=== PATIENT | female | born 1980 | race Caucasian/White ===

== ENCOUNTER 2016-12-06 17:53 | Inpatient (IN) | payer MEDICAID ==
[~2016-12-06] VITALS: Ht 149.9 cm; Wt 72.5 kg
[~2016-12-06 17:53] MED LIST: PREN1TAB17 PO
[2016-12-06] MEDS ORDERED: ONDANSETRON 4 MG INJ IV STA ×2 (18:54→22:34)
[2016-12-06] MEDS ORDERED: morphine 4 MG/ML VIAL IV STA (18:54)
[2016-12-06 19:23] LABS: ADD SCAN DIFF NO
[2016-12-06 19:27] LABS: BASOPHILS % 0.3 % (0.0-2.0); EOSINOPHILS # 0.1 10^3/ul (0.0-0.5); EOSINOPHILS % 0.6 % (0.0-7.0); HEMATOCRIT 38.9 % (37.0-47.0); HEMOGLOBIN 12.6 g/dl (12.0-16.0); LYMPHOCYTES # 2.1 10^3/ul (0.8-2.9); LYMPHOCYTES % 19.7 % (15.0-51.0); MEAN CORPUSCULAR HEMOGLOBIN 29.8 pg (29.0-33.0); MEAN CORPUSCULAR HGB CONC 32.4 g/dl (32.0-37.0); MONOCYTE # 0.5 10^3/ul (0.3-0.9); MONOCYTES % 4.7 % (0.0-11.0); NEUTROPHIL # 8.1 10^3/ul (1.6-7.5); NEUTROPHILS % 74.5 % (39.0-77.0); PLATELET COUNT 293 10^3/UL (140-415); RED BLOOD COUNT 4.23 10^6/ul (4.20-5.40); RED CELL DISTRIBUTION WIDTH 13.2 % (11.5-14.5); WHITE BLOOD COUNT 10.8 10^3/ul (4.8-10.8)
[2016-12-06 19:30] LABS: ADD UMIC YES; UR ASCORBIC ACID NEGATIVE (NEGATIVE); UR BILIRUBIN (Dip) NEGATIVE (NEGATIVE); UR BLOOD (Dip) NEGATIVE (NEGATIVE); UR CLARITY CLEAR (CLEAR); UR COLOR YELLOW (YELLOW); UR GLUCOSE (Dip) NEGATIVE (NEGATIVE); UR KETONES (Dip) NEGATIVE (NEGATIVE); UR LEUKOCYTE ESTERASE (Dip) TRACE Leu/ul (NEGATIVE); UR NITRITE (Dip) NEGATIVE (NEGATIVE); UR RBC 0 /HPF (0-5); UR SQUAMOUS EPITHELIAL CELL FEW /HPF (FEW); UR TOTAL PROTEIN (Dip) NEGATIVE (NEGATIVE); UR UROBILINOGEN (Dip) NEGATIVE (NEGATIVE)
[2016-12-06 19:39] LABS: ALBUMIN 4.8 g/dl (3.3-4.9); ALBUMIN/GLOBULIN RATIO 1.33; BILIRUBIN,INDIRECT 0.4 mg/dl (0-1.1); BILIRUBIN,TOTAL 0.4 mg/dl (0.2-1.3); CALCIUM 9.6 mg/dl (8.4-10.2); CREATININE 0.67 mg/dl (0.44-1.00); POTASSIUM 3.9 mmol/L (3.5-5.1); TOTAL PROTEIN 8.4 g/dl (6.1-8.1)
--- NOTE | 2016-12-06 20:01 | RADRPT ---
PROCEDURE: CT KUB. CLINICAL INDICATION: Right upper quadrant abdominal pain TECHNIQUE: CT KUB (Renal Stone Survey) without contrast was performed on a GE volumetric [address] scanner. No IV contrast was administered. 3-D coronal reformatted images were obtained from the axial source images. CTDI: 15.5 mGy DLP: The 755 mGy-cm COMPARISON: No prior studies are available for comparison. FINDINGS: Visualized lung bases are clear. The unenhanced liver, spleen, bilateral adrenal glands, pancreas, and gallbladder are normal-appeari ng. Bilateral kidneys are normal-appearing without hydronephrosis nor renal calculus. Urinary bladder is grossly unremarkable. A few pedunculated calcified uterine fibroids are present. A retrocecal appendix demonstrates wall thickening and mild jose d appendiceal fluid and fat stranding consistent with acute appendicitis. No abscess or free air. No abdominal pelvic adenopathy. Small fat containing umbilical hernia. Abdominal aorta is normal in caliber. The small and large bowel are thin-walled and nondilated without evidence for obstruction. Some hig h density material within the colon likely represents residual contrast material. IMPRESSION: Acute uncomplicated retrocecal appendicitis. No abscess or free air. Small pedunculated calcified uterine fibroids. Acute findings above discussed with Lynda Mei NP, in the ED at approximately 08:00 p.m. on December 06, 2016. Physician See Date Time Electronically viewed and signed by Physician See on 12/06/2016 20:01 ML/
--- NOTE | 2016-12-06 20:09 | ERD ---
ER Documentation Chief Complaint Date/Time DATE: 12/06/16 TIME: 20:06 Chief Complaint 8/10 abd pain constipation x 3 days HPI This is a 35-year-old female that presents to the ER with right lower quadrant abdominal pain that started 4 days ago. Patient states that pain was all over her stomach however localized to the right lower quadrant yesterday. Patient had been taking mineral water and stated that the pain would go away however marijuana has not worked today. Pain is severe and constant it is worse whenever she moves. She denies any fevers or chills. She denies any nausea vomiting or diarrhea. Patient states that today her appetite has been completely gone. She denies any urinary frequency or dysuria. Patient denies any drinking or smoking. She has a past medical history of hypertension, however is not on any hypertensive medications. ROS 12 point review of systems was done, all negative except per HPI. Medications Home Meds Reported Medications Vit-Iron Fumarate-FA ( Tablet) 1 Each Tablet, 1 TAB PO DAILY, TAB 10/04/14 Allergies Allergies: Coded Allergies: No Known Allergy (Unverified , 12/06/16) PMhx/Soc History of Surgery: No Anesthesia Reaction: No Hx Neurological Disorder: No Hx Respiratory Disorders: No Hx Cardiac Disorders: No Hx Psychiatric Problems: No Hx Miscellaneous Medical Probl: Yes (GERD) Hx Alcohol Use: No Hx Substance Use: No Hx Tobacco Use: No Smoking Status: Never smoker Physical Exam Vitals Vital Signs Date Time Temp Pulse Resp B/P Pulse Ox O2 Delivery O2 Flow Rate FiO2 12/06/16 18:00 97.9 90 18 121/76 97 Physical Exam GENERAL: The patient is well developed and appropriate for usual state of health , in no apparent distress. HEENT: Atraumatic. CHEST: Clear to auscultation bilaterally. There are no rales, wheezes or rhonchi. HEART: Regular rate and rhythm. No murmurs, clicks, rubs or gallops. ABDOMEN: Soft and nondistended, tender to palpation in the right lower quadrant. Good bowel sounds. No rebound or guarding. No gross peritonitis. No gross organomegaly or masses. Positive McBurney point BACK: No midline or flank tenderness. NEURO: Alert and oriented. Result Diagram: 12/06/16191412/06/161914 Results 24 hrs Laboratory Tests Test 12/06/16 19:15 White Blood Count 10.810^3/ul Red Blood Count 4.2310^6/ul Hemoglobin 12.6g/dl Hematocrit 38.9% Mean Corpuscular Volume 92.0fl Mean Corpuscular Hemoglobin 29.8pg Mean Corpuscular Hemoglobin Concent 32.4g/dl Red Cell Distribution Width 13.2% Platelet Count 08946^3/UL Mean Platelet Volume 11.0fl Neutrophils % 74.5% Lymphocytes % 19.7% Monocytes % 4.7% Eosinophils % 0.6% Basophils % 0.3% Nucleated Red Blood Cells % 0.0/100WBC Neutrophils # 8.110^3/ul Lymphocytes # 2.110^3/ul Monocytes # 0.510^3/ul Eosinophils # 0.110^3/ul Basophils # 0.010^3/ul Nucleated Red Blood Cells # 0.010^3/ul Urine Color YELLOW Urine Clarity CLEAR Urine pH 8.0 Urine Specific [place] 1.010 Urine Ketones NEGATIVEmg/dL Urine Nitrite NEGATIVEmg/dL Urine Bilirubin NEGATIVEmg/dL Urine Urobilinogen NEGATIVEmg/dL Urine Leukocyte Esterase TRACELeu/ul Urine Microscopic RBC 0/HPF Urine Microscopic WBC 1/HPF Urine Squamous Epithelial Cells FEW/HPF Urine Hemoglobin NEGATIVEmg/dL Urine Glucose NEGATIVEmg/dL Urine Total Protein NEGATIVEmg/dl Sodium Level 143mmol/L Potassium Level 3.9mmol/L Chloride Level 99mmol/L Carbon Dioxide Level 28mmol/L Anion Gap 20 Blood Urea Nitrogen 11mg/dl Creatinine 0.67mg/dl Glucose Level 93mg/dl Calcium Level 9.6mg/dl Total Bilirubin 0.4mg/dl Direct Bilirubin 0.00mg/dl Indirect Bilirubin 0.4mg/dl Aspartate Amino Transf (AST/SGOT) 22IU/L Alanine Aminotransferase (ALT/SGPT) 28IU/L Alkaline Phosphatase 69IU/L Total Protein 8.4g/dl Albumin 4.8g/dl Globulin 3.60g/dl Albumin/Globulin Ratio 1.33 Lipase 139U/L Current Medications Medications (Trade) Dose Ordered Sig/Allie Route PRN Reason Start Time Stop Time Status Last Admin Dose Admin Morphine Sulfate (morphine) 6 mg ONCE STAT IV 12/06/16 18:54 12/06/16 18:55 DC 12/06/16 19:19 Ondansetron HCl (Zofran Inj) 4 mg ONCE STAT IV 12/06/16 18:54 12/06/16 18:55 DC 12/06/16 19:19 [place] [id number] Radiology Main Line: [phone] DIAGNOSTIC IMAGING REPORT Patient: BRIAN BUCIO : 1980 Age: 35 Sex: F MR #: [id number] DOS: 12/06/16 1854 Ordering MD: AB FALCON PA-C Location: [facility] Room/Bed: PROCEDURE: CT KUB. CLINICAL INDICATION: Right upper quadrant abdominal pain TECHNIQUE: CT KUB (Renal Stone Survey) without contrast was performed on a [place] volumetric [address] scanner. No IV contrast was administered. 3-D coronal reformatted images were obtained from the axial source images. CTDI: 15.5 mGy DLP: The 755 mGy-cm COMPARISON: No prior studies are available for comparison. FINDINGS: Visualized lung bases are clear. The unenhanced liver, spleen, bilateral adrenal glands, pancreas, and gallbladder are normal-appearing. Bilateral kidneys are normal-appearing without hydronephrosis nor renal calculus. Urinary bladder is grossly unremarkable. A few pedunculated calcified uterine fibroids are present. A retrocecal appendix demonstrates wall thickening and mild jose d appendiceal fluid and fat stranding consistent with acute appendicitis. No abscess or free air. No abdominal pelvic adenopathy. Small fat containing umbilical hernia. Abdominal aorta is normal in caliber. The small and large bowel are thin-walled and nondilated without evidence for obstruction. Some high density material within the colon likely represents residual contrast material. IMPRESSION: Acute uncomplicated retrocecal appendicitis. No abscess or free air. Small pedunculated calcified uterine fibroids. Acute findings above discussed with Lynda Mei NP, in the ED at approximately 08:00 p.m. on December 06, 2016. Physician See Date Time Electronically viewed and signed by Sadiq Brown Physician on 12/06/2016 20 :01 ML/ CC: AB FALCON Procedures/MDM This is a 35-year-old female presents to the ER with right lower quadrant pain, she does have appendicitis she will be transferred to ER 1 for admission and further management and care. Departure Diagnosis: Primary Impression: Appendicitis Condition: Fair AB FALCON Dec 06, 2016 20:09
[2016-12-06] MEDS ORDERED: SOD CHLORIDE 0.9% 1,000 ML IV ONE (20:30)
[2016-12-06] MEDS ORDERED: PIPER-TAZO 3.375 GM IV (PMX) 100 ML IVPB ONE (20:30)
[2016-12-06] MEDS ORDERED: OMEP20CA16 PO (20:53)
--- NOTE | 2016-12-06 20:54 | EN ---
Date/Time of Note Date/Time of Note DATE: 12/06/16 TIME: 20:51 ER Progress Note I have seen and evaluated the patient along with the PA and/or [employer] provider. I agree with the evaluation and plan of care. Please see their documentation for full ER course and evaluation. Initial presentation: This young woman presents with right lower quadrant abdominal pain today and anorexia. She developed generalized abdominal pain yesterday. On exam: Vital signs stable, patient afebrile General: Well-developed well-nourished woman in no apparent distress looks nontoxic Abdominal examination: Right lower quadrant tenderness to touch with voluntary guarding, no rigidity or rebound Cardiac: Regular rate rhythm no murmurs rubs gallops Lungs: Clear no wheezing crackles or stridor Assessment and plan: CT scan of the abdomen and pelvis without contrast revealed acute retrocecal appendicitis without perforation. Patient was treated here with IV fluids, morphine, Zofran, and Zosyn 3.375 g IV 1. Accepting care team and consultations: I discussed the current laboratory data, diagnostic imaging and emergency care provided. Admitting team: Hospitalist Admitting team indication: Insurance directed Consulting services: On-call surgeon, Dr. Anne who I spoke to Diagnostic impression: Acute appendicitis CARRI QUINTANILLA MD Dec 06, 2016 20:54
--- NOTE | 2016-12-06 20:56 | HP ---
Date/Time of Note Date/Time of Note DATE: 12/06/16 TIME: 20:56 Assessment/Plan VTE Prophylaxis VTE Prophylaxis Intervention: SCD's Assessment/Plan Chief Complaint/Hosp Course This is a 35 year female being admitted to the [facility] floor for: #1 acute appendicitis: Retrocecal appendicitis confirmed on CAT scan. At the current time will provide IV fluid hydration with normal saline, Zosyn IV every 6 hours, IV narcotic for pain control, will keep the patient n.p.o. Consult to general surgery placed by the ER physician. #2 uterine fibroids: Incidental finding of fibroids on CAT scan. This finding will need to be discussed with the patient after surgery for #1. Will need to follow-up with OB as an outpatient. #3 DVT and GI prophylaxis: SCDs, Protonix Further treatment strategy will be implemented as per the clinical course. Problems: HPI/ROS Admit Date/Time Admit Date/Time Hx of Present Illness Chief complaint: Abdominal pain This is a 35-year-old female that presents to the ER with right lower quadrant abdominal pain that started 4 days ago. Patient states that pain was all over her stomach however localized to the right lower quadrant yesterday. Patient had been taking mineral water and stated that the pain would go away however marijuana has not worked today. Pain is severe and constant it is worse whenever she moves. She denies any fevers or chills. She denies any nausea vomiting or diarrhea. Patient states that today her appetite has been completely gone. She denies any urinary frequency or dysuria. Patient denies any drinking or smoking. She has a past medical history of hypertension, however is not on any hypertensive medications. Allergies: NKDA Medications: None ROS Const: As per HPI Eyes : No pain discharge or redness or change in visual acuity ENT: No pain, sore throat, congestion, congestion, dysphagia or discharge Respiratory: No shortness of breath, cough, sputum, wheezing, or pleuritic pain Cardiovascular: No chest pain, palpitation, PND, or edema GI : As per HPI Genitourinary: No dysuria, hematuria, flank pain , discharge or CVA tenderness Musculoskeletal: No joint pain, back pain, neck pain, restricted range of motion in neck or joints Skin: No rash, bruising or hives Neuro: No headache, dizziness, syncope, seizure, focal weakness Endocrine: No polyuria, polydipsia, temperature intolerance Psych: No hallucination, depression, anxiety or suicidal ideation PMH/Family/Social Past Medical History Medical History: no pertinent history Past Surgical History Past Surgical Hx: no surgical history Family History Significant Family History: no pertinent family hx Social History Alcohol Use: none Smoking Status: Never smoker Drug Use: none Exam/Review of Systems Vital Signs Vitals Vital Signs Date Time Temp Pulse Resp B/P Pulse Ox O2 Delivery O2 Flow Rate FiO2 12/06/16 18:00 97.9 90 18 121/76 97 Exam Exam General: This is a obese female lying in bed in mild distress from pain. HEENT: Atraumatic, normocephalic. The pupils are equal, round and reactive. Extraocular motor are intact Neck: Supple with full range of motion. No rigidity or meningismus Chest: Nontender Lungs: Clear to auscultation bilaterally no crackles rales or wheezing Heart: Normal S1-S2, Regular rhythm and rate. No murmur, S3, or S4 Abdomen: Right lower quadrant tenderness to palpation, normal bowel sounds. Extremities: Normal to inspection, no edema no cyanosis Neurologic: Normal mental status, speech normal, cranial nerves II through XII are intact, motor and sensory are intact, no focal weakness Labs Result Diagram: 12/06/16191412/06/161914 Medications Medications Current Medications Sodium Chloride 1,000 ml @ 1,000 mls/hr Q1H ONCE IV Last administered on 20:24; Admin Dose 1,000 MLS/HR; Start 12/06/16 at 20:30; Stop 12/06/16 at 21:29 Piperacillin Sod/ Tazobactam Sod (Zosyn 3.375gm/ 100 ml (Pmx)) 100 ml @ 200 mls /hr ONCE ONCE IVPB Last administered on 12/06/16 20:24; Admin Dose 200 MLS/HR ; Start 12/06/16 at 20:30; Stop 12/06/16 at 20:59 OXANA SAHNI Dec 06, 2016 20:56
[2016-12-06 21:02] LABS: PROTIME 13.2 Sec (12.2-14.2)
[2016-12-06 21:03] LABS: PARTIAL THROMBOPLASTIN TIME 26.9 Sec (25.0-35.0)
[2016-12-06] MEDS ORDERED: NACL 0.9% 3 ML SYG IV SCH (22:00)
[2016-12-06] MEDS ORDERED: ACETAMINOPHEN 325 MG TAB PO PRN (22:00)
[2016-12-06] MEDS ORDERED: METOCLOPRAMIDE 10 MG INJ IV PRN (22:00)
[2016-12-06] MEDS ORDERED: morphine 10 MG INJ IV ONE (23:00)
[2016-12-06 23:26] VITALS: TEMP 98.5
[2016-12-07] VITALS (21 sets, daily range): BP systolic 104–134; BP diastolic 54–74; PULSE 63–88; RESP 16–21; Ht 149.9 cm; Wt 72.5 kg
[2016-12-07] MEDS: SOD CHLORIDE 0.9% 1,000 ML IV SCH ×3 (00:53→17:46)
[2016-12-07] MEDS: ONDANSETRON 4 MG INJ IV PRN ×2 (00:53→08:04)
[2016-12-07] MEDS: PIPER-TAZO 3.375 GM IV (PMX) 100 ML IVPB SCH ×4 (00:54→17:51)
[2016-12-07] MEDS: morphine 4 MG/ML VIAL IV PRN ×2 (00:55→05:46)
[2016-12-07] MEDS ORDERED: HYDROmorphONE 1 MG/ML SYG IV PRN (01:00)
[2016-12-07 05:50] LABS: ADD SCAN DIFF NO
[2016-12-07 05:54] LABS: BASOPHILS % 0.2 % (0.0-2.0); EOSINOPHILS % 0.1 % (0.0-7.0); HEMATOCRIT 33.8 % (37.0-47.0); HEMOGLOBIN 10.6 g/dl (12.0-16.0); LYMPHOCYTES # 1.4 10^3/ul (0.8-2.9); LYMPHOCYTES % 16.2 % (15.0-51.0); MEAN CORPUSCULAR HEMOGLOBIN 29.3 pg (29.0-33.0); MEAN CORPUSCULAR HGB CONC 31.4 g/dl (32.0-37.0); MEAN CORPUSCULAR VOLUME 93.4 fl (82.0-101.0); MEAN PLATELET VOLUME 11.5 fl (7.4-10.4); MONOCYTE # 0.3 10^3/ul (0.3-0.9); MONOCYTES % 3.8 % (0.0-11.0); NEUTROPHIL # 6.6 10^3/ul (1.6-7.5); NEUTROPHILS % 79.3 % (39.0-77.0); PLATELET COUNT 247 10^3/UL (140-415); RED BLOOD COUNT 3.62 10^6/ul (4.20-5.40); RED CELL DISTRIBUTION WIDTH 13.4 % (11.5-14.5); WHITE BLOOD COUNT 8.4 10^3/ul (4.8-10.8)
[2016-12-07] MEDS ORDERED: PANTOPRAZOLE 40 MG INJ IV SCH (06:00)
[2016-12-07] MEDS ORDERED: GLYCOPYRROLATE 0.4 MG INJ ONE (06:24)
[2016-12-07] MEDS ORDERED: PROPOFOL 20 ML ONE (06:24)
[2016-12-07] MEDS ORDERED: NEOSTIGMINE 3 MG/3 ML SYRINGE ONE (06:24)
[2016-12-07] MEDS ORDERED: FLUMAZENIL 0.5 MG INJ ONE (06:24)
[2016-12-07] MEDS ORDERED: METOCLOPRAMIDE 10 MG INJ ONE (06:24)
[2016-12-07] MEDS ORDERED: MIDAZOLAM 1 MG/ML 2 ML INJ ONE (06:24)
[2016-12-07] MEDS ORDERED: BUPIVACAINE 0.25%/EPI (SDV) 30 ML INJ ONE (06:28)
--- NOTE | 2016-12-07 06:29 | CONS ---
Date/Time of Note Date/Time of Note DATE: 12/07/16 TIME: 06:24 Assessment/Plan Assessment/Plan Chief Complaint/Hosp Course Acute appendicitis Problems: Additional Assessment/Plan Acute appendicitis Plan: Upper scopic appendectomy possible open. I have discussed the procedure, outcomes, expectations, alternatives and risks in detail with the patient who has an excellent understanding of the nature of her situation and agrees to the proposed plan of therapy as outlined. Consultation Date/Type/Reason Admit Date/Time Date of Consultation: Dec 07, 2016 Reason for Consultation Acute appendicitis The patient is an otherwise healthy 35-year-old female who presents with a one- day history of nonspecific abdominal pain which had localized to the right lower quadrant and flank. CT scan shows uncomplicated retrocecal appendicitis. The patient is admitted and surgical consultation is requested in that regard. She has had no fevers chills or change in bowel or bladder habits. Constitutional: no complaints Eyes: no complaints ENT: no complaints Respiratory: no complaints Cardiovascular: no complaints Gastrointestinal: other (As in the HPI) Genitourinary: no complaints Musculoskeletal: no complaints Skin: no complaints Neurologic: no complaints Endocrine: no complaints Lymphatic: no complaints Immunologic: no complaints Past Medical History Medical History: no pertinent history Past Surgical History Past Surgical Hx: no surgical history Family History Significant Family History: no pertinent family hx Social History Alcohol Use: none Smoking Status: Never smoker Drug Use: none Exam/Review of Systems Vital Signs Vitals Vital Signs Date Time Temp Pulse Resp B/P Pulse Ox O2 Delivery O2 Flow Rate FiO2 12/07/16 00:02 98.6 80 18 125/74 98 Room Air Intake and Output 12/06/16 12/06/16 12/07/16 15:00 23:00 07:00 Intake Total 550 ml Output Total 600 ml Balance -50 ml Exam Constitutional: alert, oriented Psych: no complaints Head: normocephalic Eyes: PERRL Neck: supple Respiratory: clear to auscultation Cardiovascular: regular rate and rhythm Gastrointestinal: other (Slight tenderness in the right lower quadrant with no guarding or rebound) Musculoskeletal: nl extremities to inspection, nl gait and stance Extremities: normal pulses Neurological: nl mental status (Speaks only [place]) Results Result Diagram: 12/07/16 0502 12/06/16 1915 Results 24 hrs Laboratory Tests Test 12/06/16 19:15 12/07/16 05:02 White Blood Count 10.8 8.4 # Red Blood Count 4.23 3.62 L Hemoglobin 12.6 # 10.6 L Hematocrit 38.9 # 33.8 L Mean Corpuscular Volume 92.0 93.4 Mean Corpuscular Hemoglobin 29.8 29.3 Mean Corpuscular Hemoglobin Concent 32.4 31.4 L Red Cell Distribution Width 13.2 13.4 Platelet Count 293 247 Mean Platelet Volume 11.0 #H 11.5 H Neutrophils % 74.5 79.3 H Lymphocytes % 19.7 16.2 Monocytes % 4.7 3.8 Eosinophils % 0.6 0.1 Basophils % 0.3 0.2 Nucleated Red Blood Cells % 0.0 0.0 Neutrophils # 8.1 H 6.6 Lymphocytes # 2.1 1.4 Monocytes # 0.5 0.3 Eosinophils # 0.1 0.0 Basophils # 0.0 0.0 Nucleated Red Blood Cells # 0.0 0.0 Prothrombin Time 13.2 Prothrombin Time Ratio 1.0 INR International Normalized Ratio 1.00 Activated Partial Thromboplast Time 26.9 Urine Color YELLOW Urine Clarity CLEAR Urine pH 8.0 Urine Specific [place] 1.010 Urine Ketones NEGATIVE Urine Nitrite NEGATIVE Urine Bilirubin NEGATIVE Urine Urobilinogen NEGATIVE Urine Leukocyte Esterase TRACE A Urine Microscopic RBC 0 Urine Microscopic WBC 1 Urine Squamous Epithelial Cells FEW Urine Hemoglobin NEGATIVE Urine Glucose NEGATIVE Urine Total Protein NEGATIVE Sodium Level 143 Potassium Level 3.9 Chloride Level 99 Carbon Dioxide Level 28 Anion Gap 20 H Blood Urea Nitrogen 11 Creatinine 0.67 Glucose Level 93 Calcium Level 9.6 Total Bilirubin 0.4 Direct Bilirubin 0.00 Indirect Bilirubin 0.4 Aspartate Amino Transf (AST/SGOT) 22 Alanine Aminotransferase (ALT/SGPT) 28 Alkaline Phosphatase 69 Total Protein 8.4 H Albumin 4.8 Globulin 3.60 H Albumin/Globulin Ratio 1.33 Lipase 139 Medications Medications Current Medications Sodium Chloride (NS) 1,000 ml @ 100 mls/hr Q10H IV Last administered on 00:53; Admin Dose 100 MLS/HR; Start 12/06/16 at 21:46 Ondansetron HCl (Zofran Inj) 4 mg Q6H PRN IV NAUSEA AND/OR VOMITING Last administered on 12/07/16 00:53; Admin Dose 4 MG; Start 12/06/16 at 22:00 Metoclopramide HCl (Reglan) 10 mg Q6H PRN IV NAUSEA AND/OR VOMITING; Start at 22:00 Acetaminophen (Tylenol Tab) 650 mg Q6H PRN PO PAIN LEVEL 1-3 OR FEVER; Start at 22:00 Pantoprazole 40 mg 40 mg DAILY@06 IV Last administered on 12/07/16 05:43; Admin Dose 40 MG; Start 12/07/16 at 06:00 Piperacillin Sod/ Tazobactam Sod (Zosyn 3.375gm/ 100 ml (Pmx)) 100 ml @ 200 mls /hr Q6 IVPB Last administered on 12/07/16 05:44; Admin Dose 200 MLS/HR; Start 12/07/16 at 01:00 Morphine Sulfate (morphine) 4 mg Q4H PRN IV PAIN LEVEL 4-7 Last administered on 12/07/16 05:46; Admin Dose 4 MG; Start 12/07/16 at 01:00 Hydromorphone HCl (Dilaudid) 0.5 mg Q4H PRN IV PAIN; Start 12/07/16 at 01:00 RIKI DOBBINS MD Dec 07, 2016 06:29
[2016-12-07] MEDS ORDERED: ROPIVACAINE 0.5 % 30 ML VIAL ONE (06:58)
[2016-12-07] MEDS ORDERED: ROCURONIUM 50 MG INJ ONE (07:00)
[2016-12-07 07:04] LABS: ALBUMIN/GLOBULIN RATIO 1.66; BILIRUBIN,INDIRECT 0.8 mg/dl (0-1.1); BILIRUBIN,TOTAL 0.8 mg/dl (0.2-1.3); CALCIUM 8.5 mg/dl (8.4-10.2); CHOL/HDL RATIO 4.2 RATIO; CREATININE 0.71 mg/dl (0.44-1.00); MAGNESIUM 1.9 mg/dl (1.7-2.5); POTASSIUM 4.4 mmol/L (3.5-5.1); TOTAL PROTEIN 6.4 g/dl (6.1-8.1)
[2016-12-07] MEDS ORDERED: KETOROLAC 30 MG INJ ONE (07:05)
[2016-12-07] MEDS ORDERED: FENTAnyl 50 MCG/ML VIAL ONE (07:18)
--- NOTE | 2016-12-07 07:29 | OPR ---
Date/Time of Note Date/Time of Note DATE: 12/07/16 TIME: 07:24 Operative Report Procedure Date: Dec 07, 2016 Preoperative Diagnosis Acute appendicitis Postoperative Diagnosis Acute appendicitis without localized peritonitis Operation Performed Laparoscopic appendectomy Surgeon: RIKI DOBBINS MD Anesthesia: general Anesthesiologist: NAHUM GALEANO MD Estimated Blood Loss: 0 - 10 ml's Specimens Appendix Grafts/Implants None Tubes/Drains None Complications: None Pt Condition Post Procedure: stable Disposition: PACU Operative\Procedure Findings Acutely inflamed appendix without localized peritonitis Procedure Description After satisfactory general anesthesia was achieved, the abdomen was prepped and draped in the usual fashion. The abdomen was insufflated with carbon dioxide through an umbilical Veress needle to 15 mmHg pressure. The Veress needle was removed and the umbilical incision extended to 5 mm through which a 5 mm trocar was placed. A 5 mm 0 lens was placed. Laparoscopy showed no acutely inflamed appendix without localized peritonitis. There was also a 3 cm fibroid on the dome of the uterus. Under direct visualization, a 5 mm suprapubic trocar was placed as well as a 12 mm trocar midway between the umbilicus and the xiphoid. A window was made in the mesoappendix through which a vascular linear cutter was placed across the base of the cecum, closed and fired, disconnecting the appendix from the cecum. A second firing of the vascular linear cutter across the mesoappendix fully free the appendix which was placed intact into an Endo Catch which was removed via the 12 mm port site. Hemostasis of both staple lines was total and irrigant returned clear. The fascial defect at the 12 mm port site was closed with 2 sutures of #1 Vicryl placed with the assistance of a Maximus-Jorge device. The abdomen was then desufflated and the trochars were removed. The skin punctures were infiltrated with 30 cc of 0.25% Marcaine with epinephrine and closed with krista. Sponge and needle counts were reported as correct 2. The patient tolerated the procedure well and without incident or complication. RIKI DOBBINS MD Dec 07, 2016 07:29
[2016-12-07] MEDS ORDERED: ONDANSETRON 4 MG INJ IV PRN ×2 (07:30)
[2016-12-07] MEDS ORDERED: HYDROmorphONE (0.2 MG/ML) 10ML SYG IV PRN ×3 (07:30)
[2016-12-07] MEDS ORDERED: MEPERIDINE 25 MG INJ IV PRN (07:30)
[2016-12-07] MEDS ORDERED: METOCLOPRAMIDE 10 MG INJ IV PRN (07:30)
[2016-12-07] MEDS ORDERED: OXYCODONE/ACETAMINOPHEN (5/325) TAB PO PRN ×2 (07:30)
[2016-12-07] MEDS ORDERED: DIPHENHYDRAMINE 50 MG INJ IV PRN (07:30)
[2016-12-07] MEDS ORDERED: morphine 2 MG INJ IV PRN (07:30)
[2016-12-07 07:35] LABS: THYROID STIMULATING HORMONE 0.93 MIU/L (0.465-4.680)
--- NOTE | 2016-12-07 16:46 | PDOCDIS ---
Discharge Instructions DIAGNOSIS Discharge Diagnosis Acute appendicitis. Status post lap appendectomy. CONDITION Patient Condition: Stable FOLLOW UP/APPOINTMENTS Follow-up Plan Sergio Anne MD, General Surgery OTHER ORDERS: Other Orders: 1. Regular diet as tolerated. 2. Keep incisions clean and dry. May shower. Avoid tub baths and swimming for 2 weeks. Use mild soap and pat dry the incisions. 3. Take medications as needed for pain. 4. Call the surgeon or go to the nearest ER if you have severe abdominal pain despite pain medications. 5. Call the surgeon or go to the nearest ER if you notice any bleeding or secretions coming out of the incision sites. Also call the surgeon if you notice any blood in stool, if you have persistent fevers, or any other unusual signs or symptoms. 6. Follow-up with the surgeon [Dr. Anne] in 7 days for incision check. 7. Avoid heavy lifting [more than 25 pounds] for 8 weeks. SCHOOL/WORK RELEASE May return to School/Work on: Dec 11, 2016 May return to School/Work with: With Restrictions (No weightbearing more than 25 pounds for 8 weeks.) AISHA OROZCO NP Dec 07, 2016 16:46
[2016-12-07] MEDS ORDERED: ACET1TAB40 PO (16:48)
[2016-12-07] MEDS ORDERED: CEPH-443 PO (16:48)
--- NOTE | 2016-12-07 16:51 | DS ---
Date/Time of Note Date/Time of Note DATE: 12/07/16 TIME: 16:49 Discharge Summary Admission/Discharge Info Admit Date/Time Dec 06, 2016 at 20:23 Discharge Date/Time Discharge Diagnosis 1. Acute appendicitis. Status post lap appendectomy. 2. Prediabetes. Hemoglobin A1c 6.0. Patient Condition: Stable Consults Sergio Anne MD, General Surgery. Procedures Laparoscopic appendectomy on 12/07/2069 CT Scan of the Abdomen and Pelvis IMPRESSION: Acute uncomplicated retrocecal appendicitis. No abscess or free air. Small pedunculated calcified uterine fibroids. Hx of Present Illness Chief complaint: Abdominal pain This is a 35-year-old female that presents to the ER with right lower quadrant abdominal pain that started 4 days ago. Patient states that pain was all over her stomach however localized to the right lower quadrant yesterday. Pain is severe and constant it is worse whenever she moves. She denies any fevers or chills. She denies any nausea vomiting or diarrhea. Patient states that today her appetite has been completely gone. She denies any urinary frequency or dysuria. Patient denies any drinking or smoking. She has a past medical history of hypertension, however is not on any hypertensive medications. Allergies: NKDA Medications: None Hospital Course The patient was admitted to inpatient setting. The patient was kept n.p.o. The patient was started on empiric antibiotics. The patient was provided with IV fluids. The patient was evaluated by general surgery and the patient was taken to the OR on 12/07/2016. The patient underwent a laparoscopic appendectomy. Postoperatively, the patient was started on a diet. The patient was encouraged on early ambulation and frequent use of incentive spirometry. The patient was able to tolerate a regular consistency diet without any significant gastrointestinal symptoms. The patient was cleared by general surgery to be discharged home. The patient was also noticed to have a prediabetes with hemoglobin A1c of 6.0. Patient's blood sugars remained stable. The patient had a stable hospital course. Discharge Instructions 1. Regular diet as tolerated. 2. Keep incisions clean and dry. May shower. Avoid tub baths and swimming for 2 weeks. Use mild soap and pat dry the incisions. 3. Take medications as needed for pain. 4. Call the surgeon or go to the nearest ER if you have severe abdominal pain despite pain medications. 5. Call the surgeon or go to the nearest ER if you notice any bleeding or secretions coming out of the incision sites. Also call the surgeon if you notice any blood in stool, if you have persistent fevers, or any other unusual signs or symptoms. 6. Follow-up with the surgeon [Dr. Anne] in 7 days for incision check. 7. Avoid heavy lifting [more than 25 pounds] for 8 weeks. The patient verbalized understanding of her discharge instructions. At this time I would like to thank Dr. Anne for seeing the patient, doing the necessary procedures, and providing clinical recommendations. Case discussed with Dr. Watson. Home Meds Active Scripts Acetaminophen with Codeine (Acetaminophen-Cod #3 Tablet) 1 Each Tablet, 1 TAB PO Q4H for PAIN, #40 TAB Prov:AISHA OROZCO LEAK PATCHER 12/07/16 Cephalexin* (Keflex*) 500 Mg Capsule, 500 MG PO Q6, #28 CAP Prov:AISHA OROZCO LEAK PATCHER 12/07/16 Reported Medications Omeprazole* (Omeprazole*) 20 Mg Capsule.dr, 20 MG PO DAILY, #30 CAP 12/06/16 Discontinued Reported Medications Vit-Iron Fumarate-FA ( Tablet) 1 Each Tablet, 1 TAB PO DAILY, TAB 10/04/14 Follow-up Plan Follow-up with Dr. Anne in 1 week. Primary Care Provider Care Physician No Primary Time spent on discharge: > 30 minutes Pending Labs Laboratory Tests Test 12/06/16 19:15 12/07/16 05:02 White Blood Count 10.810^3/ul (4.8-10.8) 8.410^3/ul (4.8-10.8) Red Blood Count 4.2310^6/ul (4.20-5.40) 3.6210^6/ul (4.20-5.40) Hemoglobin 12.6g/dl (12.0-16.0) 10.6g/dl (12.0-16.0) Hematocrit 38.9% (37.0-47.0) 33.8% (37.0-47.0) Mean Corpuscular Volume 92.0fl (82.0-101.0) 93.4fl (82.0-101.0) Mean Corpuscular Hemoglobin 29.8pg (29.0-33.0) 29.3pg (29.0-33.0) Mean Corpuscular Hemoglobin Concent 32.4g/dl (32.0-37.0) 31.4g/dl (32.0-37.0) Red Cell Distribution Width 13.2% (11.5-14.5) 13.4% (11.5-14.5) Platelet Count 09275^3/UL (140-415) 72730^3/UL (140-415) Mean Platelet Volume 11.0fl (7.4-10.4) 11.5fl (7.4-10.4) Neutrophils % 74.5% (39.0-77.0) 79.3% (39.0-77.0) Lymphocytes % 19.7% (15.0-51.0) 16.2% (15.0-51.0) Monocytes % 4.7% (0.0-11.0) 3.8% (0.0-11.0) Eosinophils % 0.6% (0.0-7.0) 0.1% (0.0-7.0) Basophils % 0.3% (0.0-2.0) 0.2% (0.0-2.0) Nucleated Red Blood Cells % 0.0/100WBC (0.0-0.0) 0.0/100WBC (0.0-0.0) Neutrophils # 8.110^3/ul (1.6-7.5) 6.610^3/ul (1.6-7.5) Lymphocytes # 2.110^3/ul (0.8-2.9) 1.410^3/ul (0.8-2.9) Monocytes # 0.510^3/ul (0.3-0.9) 0.310^3/ul (0.3-0.9) Eosinophils # 0.110^3/ul (0.0-0.5) 0.010^3/ul (0.0-0.5) Basophils # 0.010^3/ul (0.0-0.1) 0.010^3/ul (0.0-0.1) Nucleated Red Blood Cells # 0.010^3/ul (0.0-0.0) 0.010^3/ul (0.0-0.0) Prothrombin Time 13.2Sec (12.2-14.2) Prothrombin Time Ratio 1.0 INR International Normalized Ratio 1.00 Activated Partial Thromboplast Time 26.9Sec (25.0-35.0) Urine Color YELLOW (YELLOW) Urine Clarity CLEAR (CLEAR) Urine pH 8.0 (5.0-9.0) Urine Specific [place] 1.010 (1.003-1.030) Urine Ketones NEGATIVEmg/dL (NEGATIVE) Urine Nitrite NEGATIVEmg/dL (NEGATIVE) Urine Bilirubin NEGATIVEmg/dL (NEGATIVE) Urine Urobilinogen NEGATIVEmg/dL (NEGATIVE) Urine Leukocyte Esterase TRACELeu/ul (NEGATIVE) Urine Microscopic RBC 0/HPF (0-5) Urine Microscopic WBC 1/HPF (0-5) Urine Squamous Epithelial Cells FEW/HPF (FEW) Urine Hemoglobin NEGATIVEmg/dL (NEGATIVE) Urine Glucose NEGATIVEmg/dL (NEGATIVE) Urine Total Protein NEGATIVEmg/dl (NEGATIVE) Sodium Level 143mmol/L (135-144) 142mmol/L (135-144) Potassium Level 3.9mmol/L (3.5-5.1) 4.4mmol/L (3.5-5.1) Chloride Level 99mmol/L (97-110) 105mmol/L (97-110) Carbon Dioxide Level 28mmol/L (21-31) 24mmol/L (21-31) Anion Gap 20 (8-16) 17 (8-16) Blood Urea Nitrogen 11mg/dl (7-20) 12mg/dl (7-20) Creatinine 0.67mg/dl (0.44-1.00) 0.71mg/dl (0.44-1.00) Glucose Level 93mg/dl (70-220) 128mg/dl (70-220) Calcium Level 9.6mg/dl (8.4-10.2) 8.5mg/dl (8.4-10.2) Total Bilirubin 0.4mg/dl (0.2-1.3) 0.8mg/dl (0.2-1.3) Direct Bilirubin 0.00mg/dl (0.00-0.20) 0.00mg/dl (0.00-0.20) Indirect Bilirubin 0.4mg/dl (0-1.1) 0.8mg/dl (0-1.1) Aspartate Amino Transf (AST/SGOT) 22IU/L (15-46) 17IU/L (15-46) Alanine Aminotransferase (ALT/SGPT) 28IU/L (13-69) 26IU/L (13-69) Alkaline Phosphatase 69IU/L (42-121) 56IU/L (42-121) Total Protein 8.4g/dl (6.1-8.1) 6.4g/dl (6.1-8.1) Albumin 4.8g/dl (3.3-4.9) 4.0g/dl (3.3-4.9) Globulin 3.60g/dl (1.3-3.2) 2.40g/dl (1.3-3.2) Albumin/Globulin Ratio 1.33 1.66 Lipase 139U/L (23-300) Hemoglobin A1c 6.0% (0-5.9) Magnesium Level 1.9mg/dl (1.7-2.5) Triglycerides Level 132mg/dl (0-149) Cholesterol Level 157mg/dl (100-200) LDL Cholesterol, Calculated 94mg/dl HDL Cholesterol 37mg/dl (34-82) Cholesterol/HDL Ratio 4.2RATIO Thyroid Stimulating Hormone (TSH) 0.930MIU/L (0.465-4.680) AISHA OROZCO NP Dec 07, 2016 16:51
== END 2016-12-07 19:40 | disposition home or self-care (01) | DRG 340 ==
LOC: FTE 17:53 → MS1 20:23
PROVIDERS: ADMIT Family Medicine; ATTEND Family Medicine
PROC: 0DTJ4ZZ Resection of Appendix, Percutaneous Endoscopic Approach (ICD-10-PCS; principal; 2016-12-07 06:00)
DX: K35.3 Acute appendicitis with localized peritonitis (principal); I10 Essential (primary) hypertension; D25.9 Leiomyoma of uterus, unspecified; R73.03 Prediabetes
CPT/HCPCS: 36415; 74176; 80053; 80061; 81001; 83036; 83690; 83735; 84443; 85025; 85610; 85730; 88304; 96374; 96375; 96376; C9113; J1885; J2175; J2250; J2270; J2405; J2543; J2710; J2765; J2795; J3010; J7030

== ENCOUNTER 2017-01-05 22:31 | Emergency (ER) | payer MEDICAID ==
[~2017-01-05] VITALS: Ht 152.4 cm; Wt 72.5 kg
[~2017-01-05 22:31] MED LIST changes: +ACET1TAB40 PO; +CEPH-443 PO; +OMEP20CA16 PO; -PREN1TAB17 PO
[2017-01-05 22:46] VITALS: Ht 152.4 cm; Wt 72.5 kg
[2017-01-05 23:17] LABS: URINE BLOOD (Dip) POC 2+ (NEGATIVE)
[2017-01-05 23:42] LABS: BASOPHILS % 0.3 % (0.0-2.0); EOSINOPHILS # 0.2 10^3/ul (0.0-0.5); EOSINOPHILS % 2.3 % (0.0-7.0); HEMOGLOBIN 12.5 g/dl (12.0-16.0); LYMPHOCYTES # 3.1 10^3/ul (0.8-2.9); LYMPHOCYTES % 35.4 % (15.0-51.0); MEAN CORPUSCULAR HEMOGLOBIN 29.6 pg (29.0-33.0); MEAN CORPUSCULAR HGB CONC 32.1 g/dl (32.0-37.0); MEAN CORPUSCULAR VOLUME 92.2 fl (82.0-101.0); MEAN PLATELET VOLUME 11.2 fl (7.4-10.4); MONOCYTE # 0.4 10^3/ul (0.3-0.9); NEUTROPHILS % 56.8 % (39.0-77.0); PLATELET COUNT 333 10^3/UL (140-415); RED BLOOD COUNT 4.23 10^6/ul (4.20-5.40); RED CELL DISTRIBUTION WIDTH 13.2 % (11.5-14.5); WHITE BLOOD COUNT 8.8 10^3/ul (4.8-10.8)
[2017-01-06 00:18] LABS: ALBUMIN 4.3 g/dl (3.3-4.9); ALBUMIN/GLOBULIN RATIO 1.04; BILIRUBIN,INDIRECT 0.2 mg/dl (0-1.1); BILIRUBIN,TOTAL 0.2 mg/dl (0.2-1.3); CALCIUM 9.6 mg/dl (8.4-10.2); CREATININE 0.87 mg/dl (0.44-1.00); POTASSIUM 3.5 mmol/L (3.5-5.1); TOTAL PROTEIN 8.4 g/dl (6.1-8.1)
[2017-01-06] MEDS ORDERED: FAMOTIDINE 20 MG INJ IV STA (00:25)
[2017-01-06] MEDS ORDERED: ONDANSETRON 4 MG INJ IV STA (00:25)
[2017-01-06] MEDS ORDERED: SOD CHLORIDE 0.9% 500 ML IV STA (00:25)
[2017-01-06] MEDS ORDERED: LIDOCAINE/MYLANTA 40 ML BTL PO STA (00:25)
--- NOTE | 2017-01-06 00:43 | ERD ---
ER Documentation Chief Complaint Date/Time DATE: 01/06/17 TIME: 00:41 Chief Complaint RUQ abd sharp/pressure pain HPI This is a 36-year-old female who presents to the emergency room for evaluation of abdominal pain. The patient states that she has had abdominal pain for one days duration and localizes it to the right upper quadrant with mild radiation to the back. The patient states her pain is worse with food consumption and has no relieving factors. No vomiting associated with this. The patient does state that she has had a previous appendectomy done approximately 2 months ago. ROS All systems reviewed and are negative except as per history of present illness. Medications Home Meds Active Scripts Acetaminophen with Codeine (Acetaminophen-Cod #3 Tablet) 1 Each Tablet, 1 TAB PO Q4H for PAIN, #40 TAB Prov:AISHA OROZCO BUILDING PERFORMANCE CONSULTANT 12/07/16 Cephalexin* (Keflex*) 500 Mg Capsule, 500 MG PO Q6, #28 CAP Prov:AISHA OROZCO BUILDING PERFORMANCE CONSULTANT 12/07/16 Reported Medications Omeprazole* (Omeprazole*) 20 Mg Capsule.dr, 20 MG PO DAILY, #30 CAP 12/06/16 Allergies Allergies: Coded Allergies: No Known Allergy (Unverified , 12/06/16) PMhx/Soc History of Surgery: No Anesthesia Reaction: No Hx Neurological Disorder: No Hx Respiratory Disorders: No Hx Cardiac Disorders: No Hx Psychiatric Problems: No Hx Miscellaneous Medical Probl: No Hx Alcohol Use: No Hx Substance Use: No Hx Tobacco Use: No Smoking Status: Never smoker Physical Exam Vitals Vital Signs Date Time Temp Pulse Resp B/P Pulse Ox O2 Delivery O2 Flow Rate FiO2 01/05/17 22:46 97.8 73 18 139/73 99 Physical Exam INITIAL VITAL SIGNS: Reviewed by me GENERAL: The patient is well developed and appropriate for usual state of health in no apparent distress HEENT: Pupils equal, round, and reactive to light. EOMI. There is no scleral icterus. NECK: C-spine is soft and supple, there is no meningismus. There is no cervical lymphadenopathy. LUNGS: Clear to auscultation bilaterally. There are no rales, wheezes or rhonchi. HEART: Regular rate and rhythm, no murmurs, clicks, rubs or gallops. ABDOMEN: Positive Logan sign, otherwise soft, non-tender, non-distended. There are bowel sounds in all four quadrants. No rebound or guarding. EXTREMITIES: There is no peripheral cyanosis or edema. No focal swelling or erythema. NEUROLOGICAL: The patient moves all four extremities with 5/5 strength. Cranial nerves II - XII are intact. Normal gait. Alert and oriented SKIN: There is no apparent rash or petechiae. HEME/LYMPHATIC: There is no evidence of excessive bruising or lymphedema. PSYCHIATRIC: The patient does not appear anxious or depressed. Result Diagram: 01/05/17229901/05/172299 Results 24 hrs Laboratory Tests Test 01/05/17 23:00 01/05/17 23:22 White Blood Count 8.810^3/ul Red Blood Count 4.2310^6/ul Hemoglobin 12.5g/dl Hematocrit 39.0% Mean Corpuscular Volume 92.2fl Mean Corpuscular Hemoglobin 29.6pg Mean Corpuscular Hemoglobin Concent 32.1g/dl Red Cell Distribution Width 13.2% Platelet Count 60823^3/UL Mean Platelet Volume 11.2fl Neutrophils % 56.8% Lymphocytes % 35.4% Monocytes % 5.0% Eosinophils % 2.3% Basophils % 0.3% Nucleated Red Blood Cells % 0.0/100WBC Neutrophils # 5.010^3/ul Lymphocytes # 3.110^3/ul Monocytes # 0.410^3/ul Eosinophils # 0.210^3/ul Basophils # 0.010^3/ul Nucleated Red Blood Cells # 0.010^3/ul Sodium Level 144mmol/L Potassium Level 3.5mmol/L Chloride Level 98mmol/L Carbon Dioxide Level 28mmol/L Anion Gap 22 Blood Urea Nitrogen 22mg/dl Creatinine 0.87mg/dl Glucose Level 119mg/dl Calcium Level 9.6mg/dl Total Bilirubin 0.2mg/dl Direct Bilirubin 0.00mg/dl Indirect Bilirubin 0.2mg/dl Aspartate Amino Transf (AST/SGOT) 18IU/L Alanine Aminotransferase (ALT/SGPT) 31IU/L Alkaline Phosphatase 81IU/L Total Protein 8.4g/dl Albumin 4.3g/dl Globulin 4.10g/dl Albumin/Globulin Ratio 1.04 Lipase 172U/L Bedside Urine pH (LAB) 6.0 Bedside Urine Protein (LAB) Negative Bedside Urine Glucose (UA) Negative Bedside Urine Ketones (LAB) Negative Bedside Urine Blood 2+ Bedside Urine Nitrite (LAB) Negative Bedside Urine Leukocyte Esterase (L Negative Current Medications Medications (Trade) Dose Ordered Sig/Allie Route PRN Reason Start Time Stop Time Status Last Admin Dose Admin Sodium Chloride (NS) 500 ml @ 500 mls/hr Q1H STAT IV 01/06/17 00:25 01/06/17 01:24 Ondansetron HCl (Zofran Inj) 4 mg ONCE STAT IV 01/06/17 00:25 01/06/17 00:26 DC Famotidine (Pepcid Iv) 20 mg ONCE STAT IV 01/06/17 00:25 01/06/17 00:26 DC Miscellaneous Medication (Gi Cocktail (2)) 40 ml ONCE STAT PO 01/06/17 00:25 01/06/17 00:26 DC Procedures/MDM Ultrasound gallbladder: Cholelithiasis, no cholecystitis This 36-year-old female presents to the ER for evaluation of abdominal pain. When I evaluated her she did have right upper quadrant tenderness to palpation. She was hemodynamically stable, nontoxic appearing. The patient was given a GI cocktail. Lab work was obtained and a right upper quadrant ultrasound was obtained. Gallbladder ultrasound does show cholelithiasis with no signs of cholecystitis. She has no leukocytosis, no fever, no elevations in her transaminases. The patient likely suffering from biliary colic with gallstones. I advised her she needs to change her diet. The patient will be discharged home with a prescription for Motrin, and I advised her that I will give her a referral for outpatient surgery so she can schedule an elective cholecystectomy if she continues to have problems. She was advised to return to the ER if she develops any worsening symptoms and she verbalized understanding. Differential diagnoses entertained was broad with potential high acuity. Patient has been evaluated for appendicitis, cholecystitis, and other high risk medical and surgical causes of abdominal pain. Ultimately the patient's evaluation is nondiagnostic. Based on the patient's lack of risk factors, as well as the patient's clinical, laboratory, and imaging data, the patient appears to be low risk for these high risk causes of abdominal pain. Departure Diagnosis: Primary Impression: Abdominal pain Additional Impressions: Biliary colic Cholelithiasis Condition: Stable RIKI COLMENARES DO Jan 06, 2017 00:43
[2017-01-06] MEDS ORDERED: IBUP800T25 PO (00:44)
[2017-01-06 00:46] VITALS: BP 134/73; PULSE 72; RESP 20; TEMP 97.8
--- NOTE | 2017-01-06 06:37 | RADRPT ---
PROCEDURE: Limited ultrasound of the gallbladder. CLINICAL INDICATION: 36 years of age, female, Abdominal pain. TECHNIQUE: Multiple real-time longitudinal and transverse images of the gallbladder and the bile d ucts were acquired utilizing a curved array transducer. Images were reviewed on a high-resolution [facility] workstation. COMPARISON: None. FINDINGS: Ultrasound is limited due to body habitus. Pancreas: Not well visualized due to bowel gas and body habitus Liver appearance: Mildly echogenic in keeping with steatosis. Liver length: 16.1 cm Bile Ducts: No intrahepatic or extrahepatic biliary ductal dilatation. CBD: 0.4 cm. Gallbladder: 1 cm stone in the gallbladder neck. Gallbladder is not distended. Mild thickening o f the gallbladder wall may be due to its contracted state. Gallbladder wall measures 3.8 mm. Sonogr apher reports point tenderness over the gallbladder. Main portal vein hepatopetal flow. Right kidney length: 8.7 cm. Right kidney appearance: Normal. Other: IMPRESSION: Cholelithiasis. Gallbladder is contracted accounting for wall thickening. Cotton Picking Machine Operator indicates th at there is point tenderness over the gallbladder however there are no other signs of acute cholecys titis and this should be correlated with clinical exam and lab values. Mild hepatic steatosis. RPTAT: HCTS Physician Shara Date Time Electronically viewed and signed by Physician Shara on 01/06/2017 00:38 /
== END 2017-01-06 01:01 | disposition home or self-care (01) ==
LOC: E/R 22:31
DX: R10.11 Right upper quadrant pain (principal); K80.70 Calculus of gallbladder and bile duct without cholecystitis without obstruction
CPT/HCPCS: 36415; 76705; 80053; 81003; 83690; 85025; 96374; 96375; J2405; J7040; Z7502; Z7610

== ENCOUNTER 2017-04-26 17:19 | Emergency (ER) | payer MEDICAID ==
[~2017-04-26] VITALS: Ht 152.4 cm; Wt 72.0 kg
[~2017-04-26 17:19] MED LIST changes: +IBUP800T25 PO
[2017-04-26 17:20] VITALS: Ht 152.4 cm; Wt 72.0 kg
[2017-04-26] MEDS ORDERED: ACETAMINOPHEN 325 MG TAB PO STA (18:10)
--- NOTE | 2017-04-26 18:10 | ERD ---
ER Documentation Chief Complaint Chief Complaint pt bib family with c/o vag bleed approx 8 wks preg HPI This 36-year-old female BIB family for evaluation of vaginal bleeding that started today , pt is 8 wk , pt reports passing a " big" clott, pelvic pain, reports that she has changed her jose d-pad twice today. Patient denies any dizziness, shortness of breath, or dysuria. Denies back pain, or chest pain. ROS All systems reviewed and are negative except as per history of present illness. Medications Home Meds Active Scripts Ibuprofen* (Ibuprofen*) 800 Mg Tablet, 800 MG PO Q8, #30 TAB Prov:DEDRAJEFALCIRA DO 01/06/17 Acetaminophen with Codeine (Acetaminophen-Cod #3 Tablet) 1 Each Tablet, 1 TAB PO Q4H for PAIN, #40 TAB Prov:AISHA OROZCO VICE PRESIDENT PAYMENT 12/07/16 Cephalexin* (Keflex*) 500 Mg Capsule, 500 MG PO Q6, #28 CAP Prov:AISHA OROZCO VICE PRESIDENT PAYMENT 12/07/16 Reported Medications Omeprazole* (Omeprazole*) 20 Mg Capsule.dr, 20 MG PO DAILY, #30 CAP 12/06/16 Allergies Allergies: Coded Allergies: No Known Allergy (Unverified , 12/06/16) PMhx/Soc History of Surgery: No Anesthesia Reaction: No Hx Neurological Disorder: No Hx Respiratory Disorders: No Hx Cardiac Disorders: No Hx Psychiatric Problems: No Hx Miscellaneous Medical Probl: No Hx Alcohol Use: No Hx Substance Use: No Hx Tobacco Use: No Physical Exam Vitals Vital Signs Date Time Temp Pulse Resp B/P Pulse Ox O2 Delivery O2 Flow Rate FiO2 04/26/17 17:20 99.7 90 16 131/68 97 Physical Exam Const: [] Head: Atraumatic Eyes: Normal Conjunctiva ENT: Normal External Ears, Nose and Mouth. Neck: Full range of motion..~ No meningismus. Resp: Clear to auscultation bilaterally Cardio: Regular rate and rhythm, no murmurs Abd: Soft, non tender, non distended. Normal bowel sounds Skin: No petechiae or rashes Back: No midline or flank tenderness Ext: No cyanosis, or edema Neur: Awake and alert Psych: Normal Mood and Affect Result Diagram: 04/26/17 1830 Results 24 hrs Laboratory Tests Test 04/26/17 18:30 White Blood Count 10.310^3/ul Red Blood Count 3.8910^6/ul Hemoglobin 11.5g/dl Hematocrit 35.8% Mean Corpuscular Volume 92.0fl Mean Corpuscular Hemoglobin 29.6pg Mean Corpuscular Hemoglobin Concent 32.1g/dl Red Cell Distribution Width 13.5% Platelet Count 63060^3/UL Mean Platelet Volume 11.3fl Neutrophils % 69.2% Lymphocytes % 24.0% Monocytes % 5.1% Eosinophils % 1.0% Basophils % 0.4% Nucleated Red Blood Cells % 0.0/100WBC Neutrophils # 7.110^3/ul Lymphocytes # 2.510^3/ul Monocytes # 0.510^3/ul Eosinophils # 0.110^3/ul Basophils # 0.010^3/ul Nucleated Red Blood Cells # 0.010^3/ul Urine Color YELLOW Urine Clarity SLIGHTLY CLOUDY Urine pH 5.0 Urine Specific [place] 1.024 Urine Ketones NEGATIVEmg/dL Urine Nitrite NEGATIVEmg/dL Urine Bilirubin NEGATIVEmg/dL Urine Urobilinogen NEGATIVEmg/dL Urine Leukocyte Esterase NEGATIVELeu/ul Urine Microscopic RBC > 182/HPF Urine Microscopic WBC 14/HPF Urine Hemoglobin 3+mg/dL Urine Glucose NEGATIVEmg/dL Urine Total Protein 1+mg/dl Beta HCG, Quantitative 19225.0mIU/ml Current Medications Medications (Trade) Dose Ordered Sig/Allie Route PRN Reason Start Time Stop Time Status Last Admin Dose Admin Acetaminophen (Tylenol Tab) 650 mg ONCE STAT PO 04/26/17 18:10 04/26/17 18:13 DC 04/26/17 18:33 Interpretation text CBC negative for any acute blood loss, hemorrhage, or infection Urinalysis positive for hematuria, negative for nitrates, or leukocytosis, hematuria is not an abnormal finding with vaginal bleeding. Beta hCG quantitative 03421.0 mlU/ml this is a normal hormone elevation for 7-8 weeks Procedures/MDM PROCEDURE: First trimester OB ultrasound CLINICAL INDICATION: Bleed TECHNIQUE: Real time pelvic sonography was performed using the bladders the acoustic window. Additional transvaginal images of the uterus and ovaries was performed. COMPARISON: None FINDINGS: Uterus is anteverted. It measures 6.6 x 4.9 x 5.3 cm. Uterus of normal contour and echogenicity. Noted is a single intrauterine gestation sac with pole. Positive heart beat was not seen. The crown-rump length measures 0.38 cm corresponding to a gestational age 6 weeks 0 days by ultrasound criteria. Mean sac diameter measures 1.4 cm also corresponding to a gestational age 6 weeks 0 days. A yolk sac is present. The volume of fluid within the sac is within normal limits. There is a thick regular decidual reaction with no subchorionic hemorrhage. The right ovary measures 2.2 x 1.4 x 1.8 cm. The left ovary measures 3.1 by 1.6 x 3.1 cm. No adnexal masses seen. There is normal arterial flow to both ovaries on color-flow Doppler imaging. There is no free fluid in the pelvis. No solid pelvic masses seen. IMPRESSION: Single intrauterine sac of approximate 6-week 0 days gestation age by ultrasound criteria. No heartbeat seen. Question viable very early intrauterine versus blighted ovum. Correlation with quantitative serial beta HCG levels is recommended. Normal ovaries. .Silas Geller MD, MD Date Time Electronically viewed and signed by .Silas Geller MD, MD on 04/26/2017 20: 50 This , 8 week , 36-year-old female presents to emergency department for evaluation of vaginal bleeding, patient reports pelvic pain and saturating to peripads today. Emergency room course includes history and physical exam, diagnostic laboratory values showed no acute blood loss, or infection, urinalysis negative for leukocytosis or nitrates, beta hCG quantitative appropriate rise in hormone for a 7-8 week gestation. First trimester OB ultrasound radiologist's impression single intrauterine sac of approximately 6 weeks 0 days gestation by ultrasound criteria. No heartbeat seen. Questionable viable very early intrauterine versus blighted ovum. Correlation with quantitative serial beta hCG levels are recommended. Plan to discharge patient home with close follow-up, return in 48 hours for repeat ultrasound and beta hCG. Patient should return to emergency department if bleeding increases to need to change her jose d-pad every 1-2 hours for pelvic cramping, back pain. Patient is stable with no new complaints during ER course, clinically there is no current evidence to suggest sepsis, uterine rupture molar , ectopic , or any other emergent condition appearing to require further evaluation or hospitalization. I feel the patient is stable for discharge at this time. I have discussed results, examination findings, the treatment plan with the patient and family present prior to discharge. Indications for emergent reevaluation, side effects of medication were also discussed. All questions were answered. Patient verbalizes understanding and agrees with plan of care. Departure Diagnosis: Primary Impression: Spontaneous miscarriage Condition: Good Patient Instructions: Miscarriage (Incomplete) Additional Instructions: Thank you for for coming to [facility] for your care today. Please ask your nurse or provider if you have questions about your care today and do not leave until all your questions have been answered. Please use any medications given as directed and follow-up with your doctor (or the doctor you were referred to) in the next 2-3 days. If you do not have a primary care doctor you may follow up at the [facility] (listed below). You may also use motrin and tylenol as needed for fever and/or pain unless instructed otherwise by your provider or nurse. Indications for more urgent follow-up have been discussed, but you may return to the Emergency Department at ANY time for any worrisome or worsening symptoms. If you have abdominal pain, please know that no test or exam you received is perfect and you should follow up within 8 hours for continued pain. If you had any imaging studies today, such as an X-Ray or CT Scan, these studies will be reviewed later by a radiologist. You will be called if there are important findings that were not identified today, so make sure the contact information you provided at registration is correct. If you received any narcotic pain control medicine today, such as Vicodin, Morphine or Dilaudid, your coordination and judgment may be affected for a number of hours. Please do not drive or operate heavy machinery, and you may want someone to assist you at home. If you were given a prescription for narcotic medication, be aware that it is very addictive- use sparingly and only if necessary. CAROLYN MEYERS Apr 26, 2017 18:10
[2017-04-26 18:49] LABS: BASOPHILS % 0.4 % (0.0-2.0); EOSINOPHILS # 0.1 10^3/ul (0.0-0.5); HEMATOCRIT 35.8 % (37.0-47.0); HEMOGLOBIN 11.5 g/dl (12.0-16.0); LYMPHOCYTES # 2.5 10^3/ul (0.8-2.9); MEAN CORPUSCULAR HEMOGLOBIN 29.6 pg (29.0-33.0); MEAN CORPUSCULAR HGB CONC 32.1 g/dl (32.0-37.0); MEAN PLATELET VOLUME 11.3 fl (7.4-10.4); MONOCYTE # 0.5 10^3/ul (0.3-0.9); MONOCYTES % 5.1 % (0.0-11.0); NEUTROPHIL # 7.1 10^3/ul (1.6-7.5); NEUTROPHILS % 69.2 % (39.0-77.0); PLATELET COUNT 304 10^3/UL (140-415); RED BLOOD COUNT 3.89 10^6/ul (4.20-5.40); RED CELL DISTRIBUTION WIDTH 13.5 % (11.5-14.5); WHITE BLOOD COUNT 10.3 10^3/ul (4.8-10.8)
[2017-04-26 18:57] LABS: ADD UMIC YES; UR ASCORBIC ACID NEGATIVE (NEGATIVE); UR BILIRUBIN (Dip) NEGATIVE (NEGATIVE); UR BLOOD (Dip) 3+ mg/dL (NEGATIVE); UR CLARITY SLIGHTLY CLOUDY (CLEAR); UR COLOR YELLOW (YELLOW); UR GLUCOSE (Dip) NEGATIVE (NEGATIVE); UR KETONES (Dip) NEGATIVE (NEGATIVE); UR LEUKOCYTE ESTERASE (Dip) NEGATIVE Leu/ul (NEGATIVE); UR NITRITE (Dip) NEGATIVE (NEGATIVE); UR RBC > 182 /HPF (0-5); UR SPECIFIC GRAVITY (Dip) 1.024 (1.003-1.030); UR TOTAL PROTEIN (Dip) 1+ mg/dl (NEGATIVE); UR UROBILINOGEN (Dip) NEGATIVE (NEGATIVE)
--- NOTE | 2017-04-26 20:51 | RADRPT ---
PROCEDURE: First trimester OB ultrasound CLINICAL INDICATION: Bleed TECHNIQUE: Real time pelvic sonography was performed using the bladders the acoustic window. Addit ional transvaginal images of the uterus and ovaries was performed. COMPARISON: None FINDINGS: Uterus is anteverted. It measures 6.6 x 4.9 x 5.3 cm. Uterus of normal contour and echogenicity. Not ed is a single intrauterine gestation sac with pole. Positive heart beat was not seen. T he crown-rump length measures 0.38 cm corresponding to a gestational age 6 weeks 0 days by ultrasoun d criteria. Mean sac diameter measures 1.4 cm also corresponding to a gestational age 6 weeks 0 days . A yolk sac is present. The volume of fluid within the sac is within normal limits. There is a thic k regular decidual reaction with no subchorionic hemorrhage. The right ovary measures 2.2 x 1.4 x 1.8 cm. The left ovary measures 3.1 by 1.6 x 3.1 cm. No adnexal masses seen. There is normal arterial flow to both ovaries on color-flow Doppler imaging. There is no free fluid in the pelvis. No solid pelvic masses seen. IMPRESSION: Single intrauterine sac of approximate 6-week 0 days gestation age by ultrasound criteria. No fet al heartbeat seen. Question viable very early intrauterine versus blighted ovum. Correlati on with quantitative serial beta HCG levels is recommended. Normal ovaries. .Silas Geller MD, MD Date Time Electronically viewed and signed by .Silas Geller MD, MD on 04/26/2017 20:50 .A/
[2017-04-26] MEDS ORDERED: IBUP-1542 PO (21:46)
== END 2017-04-26 22:03 | disposition home or self-care (01) ==
LOC: FTE 17:19
DX: O03.9 Complete or unspecified spontaneous abortion without complication (principal); R10.2 Pelvic and perineal pain
CPT/HCPCS: 36415; 76801; 76817; 81001; 84702; 85025; 86900; 86901; Z7502; Z7610

== ENCOUNTER 2017-04-30 14:45 | Observation (INO) | payer MEDICAID ==
[~2017-04-30] VITALS: Ht 157.5 cm; Wt 72.0 kg
[2017-04-30] VITALS (18 sets, daily range): BP systolic 92–123; BP diastolic 44–76; PULSE 74–104; RESP 16–24; Ht 157.5 cm; Wt 72.0 kg
[~2017-04-30 14:45] MED LIST changes: +IBUP-1542 PO; +PROPOFOL 200 MG INJ ONE
[2017-04-30] MEDS ORDERED: SOD CHLORIDE 0.9% 1,000 ML IV STA (15:30)
[2017-04-30] MEDS ORDERED: morphine 4 MG/ML VIAL IV STA (15:30)
[2017-04-30] MEDS ORDERED: SOD CHLORIDE 0.9% 1,000 ML IV ONE (16:00)
[2017-04-30] MEDS ORDERED: ONDANSETRON 4 MG INJ IV STA (16:07)
[2017-04-30] MEDS ORDERED: METHYLERGONOVINE 0.2 MG INJ IM ONE (16:30)
[2017-04-30] MEDS ORDERED: OXYTOCIN 10 UNIT INJ IM ONE (16:30)
--- NOTE | 2017-04-30 16:57 | ERD ---
ER Documentation Chief Complaint Chief Complaint heavy vag bleed x2 hrs, states using 3 pads/hr, hx of miscarraige last wk HPI This is a 36-year-old female that presents to the ER with heavy vaginal bleeding that started 2 hours ago. Patient states that she was seen here on April 26 when she began to have vaginal bleeding and was told that her baby did not have her heartbeat and she was possibly having a miscarriage. Did not have severe pelvic cramping which radiates to her back. She denies any urinary frequency or dysuria. Patient denies any fevers at home, however she had a low- grade fever which she arrived to the ER. A0. Patient had a normal previously and had the baby at 36 weeks 3 normal vaginal delivery. Her last normal menstrual period was February 24, 2017. He has normal periods, and has never had an abnormal Pap smear. Denies any chest pain shortness of breath. ROS 12 point review of systems was done, all negative except per HPI. Medications Home Meds Active Scripts Ibuprofen* (Motrin*) 600 Mg Tab, 600 MG PO Q6, #30 TAB Prov:CAROLYN MEYERS 04/26/17 Ibuprofen* (Ibuprofen*) 800 Mg Tablet, 800 MG PO Q8, #30 TAB Prov:RIKI COLMENARES DO 01/06/17 Acetaminophen with Codeine (Acetaminophen-Cod #3 Tablet) 1 Each Tablet, 1 TAB PO Q4H for PAIN, #40 TAB Prov:AISHA OROZCO BUGGY RUNNER 12/07/16 Cephalexin* (Keflex*) 500 Mg Capsule, 500 MG PO Q6, #28 CAP Prov:AISHA OROZCO BUGGY RUNNER 12/07/16 Reported Medications Omeprazole* (Omeprazole*) 20 Mg Capsule.dr, 20 MG PO DAILY, #30 CAP 12/06/16 Allergies Allergies: Coded Allergies: No Known Allergy (Unverified , 12/06/16) PMhx/Soc Medical and Surgical Hx: pt denies Medical Hx History of Surgery: Yes () Anesthesia Reaction: No Hx Neurological Disorder: No Hx Respiratory Disorders: No Hx Cardiac Disorders: No Hx Psychiatric Problems: No Hx Miscellaneous Medical Probl: No Hx Alcohol Use: No Hx Substance Use: No Hx Tobacco Use: No Smoking Status: Never smoker Physical Exam Vitals Vital Signs Date Time Temp Pulse Resp B/P Pulse Ox O2 Delivery O2 Flow Rate FiO2 12/6/17 16:20 78 20 107/52 99 Room Air 04/30/17 14:50 100.0 104 20 135/75 98 Physical Exam GENERAL: The patient is well developed and appropriate for usual state of health , in no apparent distress. HEENT: Atraumatic. CHEST: Clear to auscultation bilaterally. There are no rales, wheezes or rhonchi. HEART: Regular rate and rhythm. No murmurs, clicks, rubs or gallops. ABDOMEN: Soft, nontender and nondistended. BACK: No midline or flank tenderness. : very heavy active bleeding with clots NEURO: Alert and oriented. Results 24 hrs Current Medications Medications (Trade) Dose Ordered Sig/Allie Route PRN Reason Start Time Stop Time Status Last Admin Dose Admin Sodium Chloride (NS) 1,000 ml @ 1,000 mls/hr Q1H STAT IV 04/30/17 15:30 04/30/17 16:29 DC 04/30/17 16:27 Morphine Sulfate 4 mg 4 mg ONCE STAT IV 04/30/17 15:30 04/30/17 15:32 DC 04/30/17 16:27 Sodium Chloride (NS) 1,000 ml @ 1,000 mls/hr Q1H ONCE IV 04/30/17 16:00 04/30/17 16:59 Ondansetron HCl (Zofran Inj) 4 mg ONCE STAT IV 04/30/17 16:07 04/30/17 16:08 DC Methylergonovine Maleate (Methergine) 0.2 mg ONCE ONCE IM 04/30/17 16:30 04/30/17 16:32 DC Oxytocin 20 units 20 units ONCE ONCE IM 04/30/17 16:30 04/30/17 16:32 DC Doxycycline Hyclate 100 mg/ Sodium Chloride 250 ml @ 250 mls/hr ONCE IVPB 04/30/17 17:00 04/30/17 18:00 Lactated Ringer's (Lr) 1,000 ml @ 125 mls/hr Q8H IV 04/30/17 16:44 Procedures/MDM Patient was stable throughout ER course she was given 2 L of fluids, and morphine for the pain, which controlled her pain. Is a 36-year-old female that presents to the ER with heavy vaginal bleeding, I discussed this case with my supervising physician Dr. Webb, I then called laborsit abalone diver Dr. Early. Patient may need a D&C, she will be admitted for this procedure. Departure Diagnosis: Primary Impression: Vaginal bleeding Condition: Stable AB FALCON Apr 30, 2017 16:57
[2017-04-30] MEDS ORDERED: DOXYCYCLINE 100 MG in SOD CHLORIDE 0.9% 250 ML IVPB SCH (17:00)
[2017-04-30] MEDS ORDERED: MIDAZOLAM 1 MG/ML 2 ML INJ ONE (17:06)
[2017-04-30] MEDS ORDERED: FENTAnyl 50 MCG/ML VIAL ONE (17:07)
--- NOTE | 2017-04-30 17:12 | HP ---
Date/Time of Note Date/Time of Note DATE: 04/30/17 TIME: 17:02 Assessment/Plan VTE Prophylaxis VTE Prophylaxis Intervention: other (Not indicated) Lines/Catheters Central line still needed: No Urinary Cath still in place: No Assessment/Plan Chief Complaint/Hosp Course 36-year-old with evidence of inevitable with active bleeding Exam consistent with incomplete miscarriage with active hemorrhage Patient currently hemodynamically stable Discussed with patient regarding dilatation and curettage. Risk and benefit discussed with patient. Possibility of blood transfusion discussed with the patient as well. Risk of dilatation and curettage including risk of infection, bleeding, uterine perforation and damage to adjacent structures including bowel and bladder and risk of blood transfusion including but not limited to blood borne infection including HIV, hepatitis B and C and transfusion reactions discussed with the patient in detail and informed consent was obtained Patient was booked for the OR for D&C All questions were answered the patient's best satisfaction. ivf embryologist used Patient will receive doxycycline 100 mg IV [address] the way to the OR for prophylactic treatment Or notified Type and crossed 2 units of PRBC Follow up of RH status Discussed to be on OCP after D&C and follow up with her COMPOSITION TILE LAYER as out patient if DC home Problems: HPI/ROS Admit Date/Time Admit Date/Time April 30, 2017 Hx of Present Illness 36-year-old with amenorrhea for 9 weeks and known history of IUP based on the ultrasound about 4 days ago presented with a complaint of vaginal bleeding that significantly increased to. ultrasound about 4 days ago when she presented to emergency room and confirmed to have a IUP with no heart tone , exam was consistent with blighted ovum versus early IUP. Presented today with complaint of heavy vaginal bleeding today with passing large clots. Patient was seen by ED provider and was noted to have active bleeding with passing very large clots. I was called for doing consultation. Admitted to the patient bedside. Patient tearful. She reports cramping pain. Currently receiving IV resuscitation. ROS Subjective hx not possible: other (Patient is tearful. ) Constitutional: nausea Eyes: no complaints ENT: no complaints Respiratory: no complaints Cardiovascular: no complaints Gastrointestinal: blood, pain Genitourinary: bleeding Musculoskeletal: no complaints Skin: no complaints Neurologic: no complaints Endocrine: no complaints Lymphatic: no complaints Psychological: depression, nl mood/affect Immunologic: no complaints PMH/Family/Social Past Medical History Past medical history History of gallstone Past Surgical History Past surgical history: Status post appendectomy, December 07, 2016 Past Surgical Hx: no surgical history Family History Significant Family History: no pertinent family hx Social History Alcohol Use: none Smoking Status: Never smoker Drug Use: none Exam/Review of Systems Vital Signs Vitals Vital Signs Date Time Temp Pulse Resp B/P Pulse Ox O2 Delivery O2 Flow Rate FiO2 04/30/17 16:20 78 20 107/52 99 Room Air 04/30/17 14:50 100.0 Exam Constitutional: alert, oriented, well developed Psych: nl mood/affect, no complaints Head: atraumatic, normocephalic Eyes: EOMI, nl conjunctiva, nl lids ENMT: nl external ears & nose, nl lips & teeth Neck: supple Respiratory: clear to auscultation, normal air movement Cardiovascular: nl pulses, regular rate and rhythm Gastrointestinal: nl liver, spleen, soft Genitourinary - Female: nl adnexae, nl external genitalia, other (Speculum examination: There is large amount of blood clots and evidence of active bleeding from the cervix. Cervix could not be visualized due to active bleeding. Bimanual examination: Cervical office open and productive conception palpable at the cervical office. Uterus about 8-9 cm and nontender to palpation. Exam limited due to patient's discomfort and examination. No fullness or tenderness ), uterus Extremities: normal pulses Neurological: HOUSECLEANER II-XII intact, nl mental status, nl speech Skin: nl turgor Medications Medications Current Medications Doxycycline Hyclate 100 mg/ Sodium Chloride 250 ml @ 250 mls/hr ONCE IVPB ; Start 04/30/17 at 17:00; Stop 04/30/17 at 18:00 Lactated Ringer's (Lr) 1,000 ml @ 125 mls/hr Q8H IV ; Start 04/30/17 at 16:44 Procedures Procedures PROCEDURE: First trimester OB ultrasound CLINICAL INDICATION: Bleed TECHNIQUE: Real time pelvic sonography was performed using the bladders the acoustic window. Additional transvaginal images of the uterus and ovaries was performed. COMPARISON: None FINDINGS: Uterus is anteverted. It measures 6.6 x 4.9 x 5.3 cm. Uterus of normal contour and echogenicity. Noted is a single intrauterine gestation sac with pole. Positive heart beat was not seen. The crown-rump length measures 0.38 cm corresponding to a gestational age 6 weeks 0 days by ultrasound criteria. Mean sac diameter measures 1.4 cm also corresponding to a gestational age 6 weeks 0 days. A yolk sac is present. The volume of fluid within the sac is within normal limits. There is a thick regular decidual reaction with no subchorionic hemorrhage. The right ovary measures 2.2 x 1.4 x 1.8 cm. The left ovary measures 3.1 by 1.6 x 3.1 cm. No adnexal masses seen. There is normal arterial flow to both ovaries on color-flow Doppler imaging. There is no free fluid in the pelvis. No solid pelvic masses seen. IMPRESSION: Single intrauterine sac of approximate 6-week 0 days gestation age by ultrasound criteria. No heartbeat seen. Question viable very early intrauterine versus blighted ovum. Correlation with quantitative serial beta HCG levels is recommended. Normal ovaries. MARLINE ALEXANDRE MD Apr 30, 2017 17:12
[2017-04-30 17:18] LABS: BASOPHILS % 0.4 % (0.0-2.0); EOSINOPHILS # 0.1 10^3/ul (0.0-0.5); EOSINOPHILS % 1.1 % (0.0-7.0); HEMATOCRIT 32.2 % (37.0-47.0); HEMOGLOBIN 10.6 g/dl (12.0-16.0); LYMPHOCYTES # 2.1 10^3/ul (0.8-2.9); LYMPHOCYTES % 25.9 % (15.0-51.0); MEAN CORPUSCULAR HEMOGLOBIN 30.2 pg (29.0-33.0); MEAN CORPUSCULAR HGB CONC 32.9 g/dl (32.0-37.0); MEAN CORPUSCULAR VOLUME 91.7 fl (82.0-101.0); MEAN PLATELET VOLUME 11.1 fl (7.4-10.4); MONOCYTE # 0.5 10^3/ul (0.3-0.9); MONOCYTES % 6.3 % (0.0-11.0); NEUTROPHIL # 5.3 10^3/ul (1.6-7.5); NEUTROPHILS % 66.2 % (39.0-77.0); PLATELET COUNT 256 10^3/UL (140-415); RED BLOOD COUNT 3.51 10^6/ul (4.20-5.40); RED CELL DISTRIBUTION WIDTH 13.2 % (11.5-14.5)
[2017-04-30] MEDS ORDERED: METOCLOPRAMIDE 10 MG INJ IV PRN (17:30)
[2017-04-30] MEDS ORDERED: EPHEDrine SULFATE 50 MG/5 ML SYG IV PRN (17:30)
[2017-04-30] MEDS ORDERED: DIPHENHYDRAMINE 50 MG INJ IV PRN (17:30)
[2017-04-30] MEDS ORDERED: MEPERIDINE 25 MG INJ IV PRN (17:30)
[2017-04-30] MEDS ORDERED: hydrALAzine 20 MG INJ IV PRN (17:30)
[2017-04-30] MEDS ORDERED: LABETALOL HCL 20MG INJ IV PRN (17:30)
[2017-04-30] MEDS ORDERED: HYDROmorphONE (0.2 MG/ML) 10ML SYG IV PRN ×3 (17:30)
[2017-04-30] MEDS ORDERED: FENTAnyl 50 MCG/ML VIAL IV PRN ×3 (17:30)
[2017-04-30] MEDS ORDERED: ONDANSETRON 4 MG INJ IV PRN ×2 (17:30→22:30)
[2017-04-30] MEDS ORDERED: METOCLOPRAMIDE 10 MG INJ ONE (17:31)
[2017-04-30] MEDS ORDERED: DEXAMETHASONE 4 MG/ML 1 ML INJ ONE (17:31)
[2017-04-30] MEDS ORDERED: ONDANSETRON 4 MG INJ ONE (17:31)
[2017-04-30] MEDS ORDERED: KETOROLAC 30 MG INJ ONE (17:31)
[2017-04-30] MEDS ORDERED: OXYTOCIN 10 UNIT INJ ONE (17:39)
[2017-04-30] MEDS ORDERED: SILVER NITRATE SWAB ONE (17:39)
[2017-04-30 17:42] LABS: INR 1.03; PROTIME 13.6 Sec (11.9-14.9); PT RATIO 1.1
[2017-04-30 17:43] LABS: PARTIAL THROMBOPLASTIN TIME 26.8 Sec (25.0-35.0)
--- NOTE | 2017-04-30 18:21 | OPR ---
Operative Report Planned Procedure Free Text/Dictation April 30, 2017 Procedure date Apr 30, 2017 Procedure(s) Dilatation and curettage Performed by see signature line Marline Alexandre MD Nurse Sane none Anesthesiologist: RICKIE THAO MD Pre-procedure diagnosis Incomplete miscarriage Inevitable possible missed Anesthesia Type: MAC Post-Procedure Post-procedure diagnosis Same Findings Live Baby [], Apgars [] and [], weight [], position [], [] presentation []cord. Estimated Blood Loss: 100 - 200 mls Specimen(s) Products of conception Grafts/Implant(s) none Complication(s) none Pt Condition post procedure: guarded Disposition: PACU Procedure Description 36-year-old with amenorrhea for 9 weeks and 310 miscarriage presented with complaint of heavy vaginal bleeding to the emergency room and was noted to have severe hemorrhage. She was noted to have inevitable . Cervix was dilated and open with passing progressive conception at the office with large blood clot inside the vagina. She had an ultrasound 4 days ago when she presented with a complaint of bleeding and was noted to have a IUP at 6 weeks with no heart tone. She was cannulated for D&C due to significant heavy bleeding and likely nonviable . Discussed with patient about risk and benefit of procedure including risk of infection, bleeding, uterine perforation and damage to adjacent structures including bowel and bladder and risk of blood transfusion including but not limited to blood borne infection including HIV, hepatitis B and C and transfusion reactions discussed the patient in detail and informed consent was obtained Patient and desired to proceed with D&C. She received [address]xycycl[address] the way to the OR and then was placed on dorsal lithotomy position. She was placed under MAC anesthesia. Timeout procedure was completed and patient identified correctly. Exam under anesthesia performed. Cervix was noted to be open with evidence of retained product of conception at the cervical loss. Uterus about 8-9 cm. Then after placing a bivalved speculum inside the vagina anterior lip of the cervix was grasped using ring forceps and uterine depth was measured using uterine sound was noted to be 9 cm. Then using a Vacurette #8 the entire endometrial cavity in 260 was evacuated and suction then after complete evacuation of the uterus then secondary to a cavity using sharp curette #4 and 360 was suctioned. A gritty sensation noted. Repeat suctioning of the endometrial cavity confirming adequate removal of present of conception. Products of conception was sent to pathology separately. Then the ring forceps from anterior lip of the cervix was removed. Then the cervix was evaluated for any bleeding. Silver nitrate was applied over the placement of a tenaculum ring forceps. Excellent hemostasis was obtained. And the instruments removed from the anterior cervix. Patient tolerated the procedure well. Sponge lap counts were correct 2. Patient was then transferred to recovery room in stable condition end of dictation Of note that patient received a dose of doxycycline prior to be taken to the operating room. The plan would be to give the patient doxycycline for the next 3 days. . Patient tolerated the procedure well and was then transferred to recovery room in stable condition MARLINE ALEXADNRE MD Apr 30, 2017 18:21
[2017-04-30 18:30] LABS: HEMATOCRIT 31.2 % (37.0-47.0); HEMOGLOBIN 10.1 g/dl (12.0-16.0)
[2017-04-30] MEDS ORDERED: IBUPROFEN 600 MG TAB PO PRN (21:30)
[2017-04-30] MEDS: HYDROCODONE/APAP (5/325) TAB PO PRN (21:49)
[2017-04-30] MEDS: LACTATED RINGER'S 1,000 ML IV SCH (21:50)
[2017-04-30] MEDS: DOXYCYCLINE 100 MG TAB PO SCH (23:03)
[2017-05-01 02:00] VITALS: BP 121/54; RESP 20
[2017-05-01] MEDS: LACTATED RINGER'S 1,000 ML IV SCH ×2 (04:38→08:23)
[2017-05-01] MEDS: HYDROCODONE/APAP (5/325) TAB PO PRN (06:13)
[2017-05-01 06:17] LABS: BASOPHILS % 0.1 % (0.0-2.0); HEMATOCRIT 29.1 % (37.0-47.0); HEMOGLOBIN 9.6 g/dl (12.0-16.0); LYMPHOCYTES # 1.2 10^3/ul (0.8-2.9); LYMPHOCYTES % 12.3 % (15.0-51.0); MEAN CORPUSCULAR HEMOGLOBIN 29.9 pg (29.0-33.0); MEAN CORPUSCULAR VOLUME 90.7 fl (82.0-101.0); MEAN PLATELET VOLUME 11.6 fl (7.4-10.4); MONOCYTE # 0.2 10^3/ul (0.3-0.9); MONOCYTES % 1.9 % (0.0-11.0); NEUTROPHILS % 85.3 % (39.0-77.0); PLATELET COUNT 265 10^3/UL (140-415); RED BLOOD COUNT 3.21 10^6/ul (4.20-5.40); RED CELL DISTRIBUTION WIDTH 12.9 % (11.5-14.5); WHITE BLOOD COUNT 9.4 10^3/ul (4.8-10.8)
[2017-05-01 06:43] LABS: ALBUMIN 3.2 g/dl (3.3-4.9); ALBUMIN/GLOBULIN RATIO 0.96; BILIRUBIN,INDIRECT 0.3 mg/dl (0-1.1); BILIRUBIN,TOTAL 0.3 mg/dl (0.2-1.3); CALCIUM 8.7 mg/dl (8.4-10.2); CREATININE 0.57 mg/dl (0.44-1.00); POTASSIUM 4.3 mmol/L (3.5-5.1); TOTAL PROTEIN 6.5 g/dl (6.1-8.1)
[2017-05-01 08:03] VITALS: BP 106/59; RESP 18
[2017-05-01] MEDS: DOXYCYCLINE 100 MG TAB PO SCH (08:22)
--- NOTE | 2017-05-01 14:04 | DS ---
Date/Time of Note Date/Time of Note DATE: 05/01/17 TIME: 13:59 Discharge Summary Admission/Discharge Info Admit Date/Time May 01, 2017 Discharge summary This patient is a 36 years old 2 para 1 who was about 9 weeks came to the hospital yesterday with vaginal bleeding after ultrasound study and pelvic examination the diagnosis incomplete was made and subsequently she underwent a dilatation and curettage antibiotic he was given. Today which is a 1 day post her she is afebrile abdomen is soft no vaginal bleeding no odorous discharge no fever she is discharged home to be followed in the clinic. Laboratory Tests Test 04/30/17 17:00 04/30/17 18:20 05/01/17 05:40 05/01/17 09:52 White Blood Count 8.010^3/ul 9.410^3/ul Red Blood Count 3.5110^6/ul 3.2110^6/ul Hemoglobin 10.6g/dl 10.1g/dl 9.6g/dl Hematocrit 32.2% 31.2% 29.1% Mean Corpuscular Volume 91.7fl 90.7fl Mean Corpuscular Hemoglobin 30.2pg 29.9pg Mean Corpuscular Hemoglobin Concent 32.9g/dl 33.0g/dl Red Cell Distribution Width 13.2% 12.9% Platelet Count 26100^3/UL 31473^3/UL Mean Platelet Volume 11.1fl 11.6fl Neutrophils % 66.2% 85.3% Lymphocytes % 25.9% 12.3% Monocytes % 6.3% 1.9% Eosinophils % 1.1% 0.0% Basophils % 0.4% 0.1% Nucleated Red Blood Cells % 0.0/100WBC 0.0/100WBC Neutrophils # 5.310^3/ul 8.010^3/ul Lymphocytes # 2.110^3/ul 1.210^3/ul Monocytes # 0.510^3/ul 0.210^3/ul Eosinophils # 0.110^3/ul 0.010^3/ul Basophils # 0.010^3/ul 0.010^3/ul Nucleated Red Blood Cells # 0.010^3/ul 0.010^3/ul Prothrombin Time 13.6Sec Prothrombin Time Ratio 1.1 INR International Normalized Ratio 1.03 Activated Partial Thromboplast Time 26.8Sec Fibrinogen 330.0mg/dl Beta HCG, Quantitative 77488.0mIU/ml Sodium Level 138mmol/L Potassium Level 4.3mmol/L Chloride Level 107mmol/L Carbon Dioxide Level 23mmol/L Anion Gap 12 Blood Urea Nitrogen 9mg/dl Creatinine 0.57mg/dl Glucose Level 129mg/dl Calcium Level 8.7mg/dl Total Bilirubin 0.3mg/dl Direct Bilirubin 0.00mg/dl Indirect Bilirubin 0.3mg/dl Aspartate Amino Transf (AST/SGOT) 16IU/L Alanine Aminotransferase (ALT/SGPT) 29IU/L Alkaline Phosphatase 52IU/L Total Protein 6.5g/dl Albumin 3.2g/dl Globulin 3.30g/dl Albumin/Globulin Ratio 0.96 Lab Scanned Report [id number] Current Medications Medications (Trade) Dose Ordered Sig/Allie Route PRN Reason Start Time Stop Time Status Last Admin Dose Admin Sodium Chloride (NS) 1,000 ml @ 1,000 mls/hr Q1H STAT IV 04/30/17 15:30 04/30/17 16:29 DC 04/30/17 16:27 Morphine Sulfate 4 mg 4 mg ONCE STAT IV 04/30/17 15:30 04/30/17 15:32 DC 04/30/17 16:27 Sodium Chloride (NS) 1,000 ml @ 1,000 mls/hr Q1H ONCE IV 04/30/17 16:00 04/30/17 16:59 DC 04/30/17 17:15 Ondansetron HCl (Zofran Inj) 4 mg ONCE STAT IV 04/30/17 16:07 04/30/17 16:08 DC 04/30/17 17:14 Methylergonovine Maleate (Methergine) 0.2 mg ONCE ONCE IM 04/30/17 16:30 04/30/17 16:32 DC 04/30/17 17:15 Oxytocin 20 units 20 units ONCE ONCE IM 04/30/17 16:30 04/30/17 16:32 DC 04/30/17 17:15 Doxycycline Hyclate 100 mg/ Sodium Chloride 250 ml @ 250 mls/hr ONCE IVPB 04/30/17 17:00 04/30/17 18:01 DC Lactated Ringer's (Lr) 1,000 ml @ 50 mls/hr Q20H IV 04/30/17 16:44 05/01/17 13:35 DC 05/01/17 08:23 Hydromorphone HCl (Dilaudid (Rec)) 0.2 mg PACU ORDER PRN IV MILD PAIN LEVEL 1-3 04/30/17 17:30 04/30/17 21:30 DC Hydromorphone HCl (Dilaudid (Rec)) 0.4 mg PACU ORDER PRN IV MODERATE PAIN LEVEL 4-6 04/30/17 17:30 04/30/17 21:30 DC Hydromorphone HCl (Dilaudid (Rec)) 0.6 mg PACU ORDER PRN IV SEVERE PAIN LEVEL 7-10 04/30/17 17:30 04/30/17 21:30 DC Fentanyl (Sublimaze) 25 mcg PACU ORDER PRN IV MILD PAIN LEVEL 1-3 04/30/17 17:30 04/30/17 21:30 DC Fentanyl (Sublimaze) 50 mcg PACU ODER PRN IV MODERATE PAIN LEVEL 4-6 04/30/17 17:30 04/30/17 21:30 DC Fentanyl (Sublimaze) 75 mcg PACU ORDER PRN IV SEVERE PAIN LEVEL 7-10 04/30/17 17:30 04/30/17 21:30 DC Ondansetron HCl (Zofran Inj) 4 mg PACU ORDER PRN IV NAUSEA AND/OR VOMITING 04/30/17 17:30 04/30/17 21:30 DC Metoclopramide HCl (Reglan) 10 mg PACU ORDER PRN IV NAUSEA AND/OR VOMITING 04/30/17 17:30 04/30/17 21:30 DC Labetalol HCl (Labetalol) 5 mg PACU ORDER PRN IV HIGH BLOOD PRESSURE 04/30/17 17:30 04/30/17 21:30 DC Hydralazine HCl (Apresoline) 5 mg PACU ORDER PRN IV HIGH BLOOD PRESSURE 04/30/17 17:30 04/30/17 21:30 DC Ephedrine Sulfate 5 mg PACU ORDER PRN IV MAP LESS THAN 60 04/30/17 17:30 04/30/17 21:30 DC Meperidine HCl (Demerol) 25 mg PACU ORDER PRN IV POST-OP RIGORS 04/30/17 17:30 04/30/17 21:30 DC Diphenhydramine HCl (Benadryl) 25 mg PACU ORDER PRN IV PRURITUS 04/30/17 17:30 04/30/17 21:30 DC Midazolam HCl (Versed) 2 mg STK-MED ONCE .ROUTE 04/30/17 17:06 04/30/17 21:00 DC Fentanyl (Sublimaze) 100 mcg STK-MED ONCE .ROUTE 04/30/17 17:07 04/30/17 21:00 DC Ondansetron HCl (Zofran Inj) 4 mg STK-MED ONCE .ROUTE 04/30/17 17:31 04/30/17 21:00 DC Metoclopramide HCl (Reglan) 10 mg STK-MED ONCE .ROUTE 04/30/17 17:31 04/30/17 21:00 DC Ketorolac Tromethamine (Toradol) 30 mg STK-MED ONCE .ROUTE 04/30/17 17:31 04/30/17 21:00 DC Dexamethasone (Decadron) 4 mg STK-MED ONCE .ROUTE 04/30/17 17:31 04/30/17 21:01 DC Oxytocin (Oxytocin) 10 units STK-MED ONCE .ROUTE 04/30/17 17:39 04/30/17 21:01 DC Silver Nitrate (Silver Nitrate Swabs) 1 stick STK-MED ONCE .ROUTE 04/30/17 17:39 04/30/17 21:03 DC Acetaminophen/ Hydrocodone Bitart ([place] (5/325)) 1 tab Q6H PRN PO PAIN 04/30/17 21:30 05/01/17 13:35 DC 05/01/17 06:13 Ibuprofen (Motrin) 600 mg Q6H PRN PO PAIN 04/30/17 21:30 05/01/17 13:35 DC 04/30/17 23:20 Ondansetron HCl (Zofran Inj) 4 mg Q6H PRN IV NAUSEA AND/OR VOMITING 04/30/17 22:30 05/01/17 13:35 DC Doxycycline Hyclate (Vibramycin) 100 mg BID PO 04/30/17 22:30 05/01/17 13:35 DC 05/01/17 08:22 Influenza Virus Vaccine (Fluzone) 0.5 ml ONCE ONCE IM* 05/02/17 11:00 05/02/17 11:00 DC Discharge Date/Time May 01, 2017 at 12:55 Patient Condition: Good Procedures Dilatation and curettage Hx of Present Illness Incomplete of about 9 weeks Hospital Course She underwent a D&C and was discharged home Home Meds Active Scripts Ibuprofen* (Motrin*) 600 Mg Tab, 600 MG PO Q6, #30 TAB Prov:LUIGI,CAROLYN 04/26/17 Discontinued Reported Medications Omeprazole* (Omeprazole*) 20 Mg Capsule.dr, 20 MG PO DAILY, #30 CAP 12/06/16 Discontinued Scripts Ibuprofen* (Ibuprofen*) 800 Mg Tablet, 800 MG PO Q8, #30 TAB Prov:RIKI COLMENARES DO 01/06/17 Acetaminophen with Codeine (Acetaminophen-Cod #3 Tablet) 1 Each Tablet, 1 TAB PO Q4H for PAIN, #40 TAB Prov:AISHA OROZCO BREEDER SERVICE TECHNICIAN 12/07/16 Cephalexin* (Keflex*) 500 Mg Capsule, 500 MG PO Q6, #28 CAP Prov:AISHA OROZCO BREEDER SERVICE TECHNICIAN 12/07/16 Follow-up Plan To be followed in her library media specialist's office Primary Care Provider Care Physician No Primary Time spent on discharge: < 30 minutes Pending Labs Laboratory Tests Test 04/30/17 17:00 04/30/17 18:20 05/01/17 05:40 05/01/17 09:52 White Blood Count 8.010^3/ul (4.8-10.8) 9.410^3/ul (4.8-10.8) Red Blood Count 3.5110^6/ul (4.20-5.40) 3.2110^6/ul (4.20-5.40) Hemoglobin 10.6g/dl (12.0-16.0) 10.1g/dl (12.0-16.0) 9.6g/dl (12.0-16.0) Hematocrit 32.2% (37.0-47.0) 31.2% (37.0-47.0) 29.1% (37.0-47.0) Mean Corpuscular Volume 91.7fl (82.0-101.0) 90.7fl (82.0-101.0) Mean Corpuscular Hemoglobin 30.2pg (29.0-33.0) 29.9pg (29.0-33.0) Mean Corpuscular Hemoglobin Concent 32.9g/dl (32.0-37.0) 33.0g/dl (32.0-37.0) Red Cell Distribution Width 13.2% (11.5-14.5) 12.9% (11.5-14.5) Platelet Count 48109^3/UL (140-415) 69120^3/UL (140-415) Mean Platelet Volume 11.1fl (7.4-10.4) 11.6fl (7.4-10.4) Neutrophils % 66.2% (39.0-77.0) 85.3% (39.0-77.0) Lymphocytes % 25.9% (15.0-51.0) 12.3% (15.0-51.0) Monocytes % 6.3% (0.0-11.0) 1.9% (0.0-11.0) Eosinophils % 1.1% (0.0-7.0) 0.0% (0.0-7.0) Basophils % 0.4% (0.0-2.0) 0.1% (0.0-2.0) Nucleated Red Blood Cells % 0.0/100WBC (0.0-0.0) 0.0/100WBC (0.0-0.0) Neutrophils # 5.310^3/ul (1.6-7.5) 8.010^3/ul (1.6-7.5) Lymphocytes # 2.110^3/ul (0.8-2.9) 1.210^3/ul (0.8-2.9) Monocytes # 0.510^3/ul (0.3-0.9) 0.210^3/ul (0.3-0.9) Eosinophils # 0.110^3/ul (0.0-0.5) 0.010^3/ul (0.0-0.5) Basophils # 0.010^3/ul (0.0-0.1) 0.010^3/ul (0.0-0.1) Nucleated Red Blood Cells # 0.010^3/ul (0.0-0.0) 0.010^3/ul (0.0-0.0) Prothrombin Time 13.6Sec (11.9-14.9) Prothrombin Time Ratio 1.1 INR International Normalized Ratio 1.03 Activated Partial Thromboplast Time 26.8Sec (25.0-35.0) Fibrinogen 330.0mg/dl (207-461) Beta HCG, Quantitative 81775.0mIU/ml Sodium Level 138mmol/L (135-144) Potassium Level 4.3mmol/L (3.5-5.1) Chloride Level 107mmol/L (97-110) Carbon Dioxide Level 23mmol/L (21-31) Anion Gap 12 (8-16) Blood Urea Nitrogen 9mg/dl (7-20) Creatinine 0.57mg/dl (0.44-1.00) Glucose Level 129mg/dl (70-220) Calcium Level 8.7mg/dl (8.4-10.2) Total Bilirubin 0.3mg/dl (0.2-1.3) Direct Bilirubin 0.00mg/dl (0.00-0.20) Indirect Bilirubin 0.3mg/dl (0-1.1) Aspartate Amino Transf (AST/SGOT) 16IU/L (15-46) Alanine Aminotransferase (ALT/SGPT) 29IU/L (13-69) Alkaline Phosphatase 52IU/L (42-121) Total Protein 6.5g/dl (6.1-8.1) Albumin 3.2g/dl (3.3-4.9) Globulin 3.30g/dl (1.3-3.2) Albumin/Globulin Ratio 0.96 Lab Scanned Report [id number] SARAH LY MD May 01, 2017 14:04
[2017-05-02] MEDS ORDERED: INFLUENZA VIRUS VACCINE 0.5 ML SYG IM* ONE (11:00)
== END 2017-05-01 12:55 | disposition home or self-care (01) ==
LOC: FTE 14:45 → SDS 16:48 → MS2 20:03
PROVIDERS: ADMIT Obstetrics & Gynecology Obstetrics; ATTEND Obstetrics & Gynecology Obstetrics
DX: O03.4 Incomplete spontaneous abortion without complication (principal)
CPT/HCPCS: 36415; 59812; 80053; 84702; 85014; 85018; 85025; 85384; 85610; 85730; 86850; 86900; 86901; 86920; 88305; 96372; 96374; 96375; J1100; J1885; J2210; J2250; J2270; J2405; J2590; J2765; J3010; J7030; J7050; J7120; Z7500; Z7502; Z7512; Z7610; G0378